=== PATIENT | female | born 1945 | race Caucasian/White ===

== ENCOUNTER 2020-05-09 15:34 | Emergency (ER) | payer MEDICARE, BC, SELFPAY ==
[2020-05-09 15:41] VITALS: BP 133/92; PULSE 118; RESP 16; TEMP 36.7; O2SAT 100
--- NOTE | 2020-05-09 15:47 | PC.NURSE ---
Called to give report. Was told by Elly that Tracie will have to call me back. She is on the COVID side.
[2020-05-09 15:55] LABS: Basophils Percent Auto 0.3 % (0.2-1.2); Eosinophils Absolute Auto 0.1 K/mm3 (0-0.3); Eosinophils Percent Auto 1.5 % (0-4.4); Hematocrit 42.4 % (37.0-47.0); Hemoglobin 14.9 g/dL (12.0-15.0); Immature Granulocyte Absolute 0.01 K/mm3 (0.00-0.031); Immature Granulocyte Percent A 0.2 % (0-0.5); Lymphocytes Absolute Auto 1.38 K/mm3 (0.9-3.2); Lymphocytes Percent Auto 20.9 % (18.3-44.2); Mean Corpuscular HGB Conc 35.1 g/dl (32-36); Mean Platelet Volume 10.3 fl (7.4-10.4); Monocytes Absolute Auto 0.4 K/mm3 (0.1-0.6); Monocytes Percent Auto 6.4 % (2.6-8.5); Neutrophils Absolute Auto 4.7 K/mm3 (1.3-6.7); Neutrophils Percent Auto 70.7 % (45.5-73.1); Platelet Count Result 296 k/mm3 (150-375); Red Blood Count 4.51 M/mm3 (4.2-5.4); Red Cell Distribution Width 11.6 % (11.5-14.5); White Blood Count 6.6 K/mm3 (4.5-10.0)
[2020-05-09 16:06] LABS: Ethanol < 10 mg/dL (<10)
[2020-05-09 16:07] LABS: Alanine Aminotransferase 11 U/L (4-35); Albumin Level 4.6 g/dL (3.5-5.1); Alkaline Phosphatase 75 U/L (38-126); Anion Gap 12 mmol/L (8-16); Aspartate Amino Transferase 26 U/L (14-36); Bilirubin,Total 0.5 mg/dL (0.2-1.3); Blood Urea Nitrogen 8 mg/dL (7-17); Calcium 10.1 mg/dL (8.4-10.2); Carbon Dioxide 27 mmol/L (22-30); Chloride 96 mmol/L (98-107); Estimated CRCL calculation 37 ml/min; Estimated Glomerular Filt Rate 55; Glucose 116 mg/dL (65-105); Potassium 4.2 mmol/L (3.4-5.0); Sodium 135 mmol/L (137-145)
[2020-05-09 16:27] LABS: Add Urine Microscopic? YES; Appearance Urine Clear (Clear); Bacteria Urine Trace /hpf; Bilirubin Urine Negative (Negative); Blood Urine Negative (Negative); Color Urine Yellow (Yellow); Glucose Urine UA Negative (Negative); Hyaline Casts Urine 20-29 /lpf; Ketones Urine Negative (Negative); Leukocyte Esterase Ur Trace LEU/UL (Negative); Mucus Urine Rare /lpf; Nitrate Urine Negative (Negative); Protein Urine 1+ mg/dL (Negative); RBC Urine 0-2 /hpf (0-2); Specific Grav Ur 1.011 (1.001-1.035); Squamous Epithelial Cell Urine Rare /hpf (Few); Urobilinogen Urine Negative mg/dL (<2.0)
--- NOTE | 2020-05-09 16:37 | PC.NURSE ---
Pt arrived to ED with sister. Pt states that she has not been wanting to eat anything and all she does is watch TV. 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 Pt states she does not take any medication because they dont work .Pt states she had her first episode when she was 5. Pt has been hospitalized in past for depression ( 2000, 2018,2019). Pt states that she does not have a good support system. Pt states her son passed in 2018. Pt states she is not [place]. Pt states that she would go into her garage and turn her car on. by carbon monoxide. Pt is cooperative and answers questions appropriately. Pt taken to safe room and has sitter at bedside.
[2020-05-09 16:44] LABS: Amphetamine Screen Urine Negative (Negative); Barbiturate Screen Urine Negative (Negative); Benzodiazepines Screen Urine Negative (Negative); Cannabinoid Screen Urine Negative (Negative); Cocaine Screen Urine Negative (Negative); Methadone Screen Urine Negative (Negative); Opiate Screen Urine Negative (Negative); Phencyclidine Screen Urine Negative (Negative)
--- NOTE | 2020-05-09 17:11 | PC.NURSE ---
Report taken from JOHANNA Vazquez. Pt moved to room 2. Pt remains on 1:1 observation. Sister at bedside.
--- NOTE | 2020-05-09 17:40 | PC.NURSE ---
Juany from Crisis called.
--- NOTE | 2020-05-09 17:43 | ED.PSYCH ---
HPI - Psych General Chief Complaint: Psychiatric Symptoms <Clement Ramon MD - Last Filed: 05/10/20 00:21> Stated Complaint: anxiety <Clement Ramon MD - Last Filed: 05/10/20 00:21> Time Seen by Provider: 05/09/20 16:19 <Clement Ramon MD - Last Filed: 05/10/20 00:21> History of Present Illness HPI Narrative: Patient is a 74-year-old female who presents ER with suicidal ideation and depression. Patient has had depression for several years since her son . She quit taking her medication in September 2019. Her depression became worse in the last month after her sister moved from being 20 miles away to 50 miles away and she no longer sees her once a week. She has a plan to end her own life by starting her car in her close garage and suffocating herself on carbon monoxide. She has not tried to take her own life previously but has been hospitalized for her depression in the last year. <Clement Ramon MD - Last Filed: 05/10/20 00:21> Related Data Home Medications: Home Medications Medication Instructions Recorded Confirmed buspirone 15 mg tablet 15 mg PO BID 06/11/19 02/29/20 donepezil 10 mg tablet 10 mg PO ONCE 06/11/19 02/29/20 methylphenidate HCl 54 mg 54 mg PO QAM 06/11/19 02/29/20 tablet,extended release 24 hr olanzapine 20 mg tablet 20 mg PO DAILY 06/11/19 02/29/20 vortioxetine 20 mg tablet 20 mg PO DAILY 06/11/19 02/29/20 <Clement Ramon MD - Last Filed: 05/10/20 00:21> Allergies/Adverse Reactions: Allergies Allergy/AdvReac Type Severity Reaction Status Date / Time ciprofloxacin Allergy Unknown Nausea Verified 02/29/20 14:37 doxycycline Allergy Unknown Nausea Verified 02/29/20 14:37 lamotrigine Allergy Unknown Unknown Verified 02/29/20 14:37 lithium Allergy Unknown Unknown Verified 02/29/20 14:37 Sulfa (Sulfonamide Allergy Unknown Nausea Verified 02/29/20 14:37 Antibiotics) <Clement Ramon MD - Last Filed: 05/10/20 00:21> Review of Systems Review of Systems: All systems reviewed & are unremarkable except as noted in HPI and below <Clement Ramon MD - Last Filed: 05/10/20 00:21> Constitutional: Constitutional: Denies chills, Denies fever(s) and Denies weakness <Clement Ramon MD - Last Filed: 05/10/20 00:21> ENT: Denies nasal congestion and Denies sore throat <Clement Ramon MD - Last Filed: 05/10/20 00:21> Cardiovascular: Cardiovascular: Denies chest pain, Denies rapid heart rate and Denies radiating jaw, neck or arm pain <Clement Ramon MD - Last Filed: 05/10/20 00:21> Respiratory: Respiratory: Denies cough and Denies dyspnea <Clement Ramon MD - Last Filed: 05/10/20 00:21> Psychiatric: Psychiatric: Denies anxiety, Reports depression, Denies homicidal ideation and Reports suicidal ideation <Clement Raomn MD - Last Filed: 05/10/20 00:21> [facility] Past Medical History Medical History: Medical History (Updated 05/10/20 @ 00:21 by Clement Ramon MD) Actinic keratosis Chronic kidney disease, stage 3 (moderate) Hypothyroidism, unspecified Iron deficiency anemia, unspecified Major depressive disorder, recurrent, unspecified Mixed hyperlipidemia <Clement Ramon MD - Last Filed: 05/10/20 00:21> Surgical History Surgical History: Surgical History (Updated 05/09/20 @ 20:54 by Clement Ramon MD) No pertinent past surgical history <Clement Ramon MD - Last Filed: 05/10/20 00:21> Family History Family History: Family History Grandparent Diabetes mellitus Father Family history of elevated blood lipids Family history of cardiovascular disease Family history of coronary artery disease Family history of renal cell carcinoma Sibling Family history of lung cancer <Clement Ramon MD - Last Filed: 05/10/20 00:21> Social History Social History: Social History (Reviewed 02/29/20 @ 14:38 by Shanon Macias,
--- NOTE | 2020-05-09 17:52 | PC.NURSE ---
Dinner tray ordered for pt.
--- NOTE | 2020-05-09 18:30 | PC.NURSE ---
Dinner tray ordered for pt. Pt resting on stretcher with family at bedside. Pt on 1:1 observation.
--- NOTE | 2020-05-09 20:55 | PC.NURSE ---
gateway conversing with ptAvelino
[2020-05-09 21:01] VITALS: BP 122/74; PULSE 76; RESP 18; O2SAT 98
--- NOTE | 2020-05-10 01:12 | PC.NURSE ---
Addendum entered by Nisa Weaver 05/10/20 01:13: ETA 45 minutes, not 20 minutes. Original Note: called [facility] to request transport. ETA 20 minutes
[2020-05-10 01:21] VITALS: BP 128/74; PULSE 73; RESP 18; O2SAT 98
== END 2020-05-10 02:05 ==
PROVIDERS: General Practice; Emergency Provider Emergency Medicine; PCP Family Medicine
DX: F32.9 Major depressive disorder, single episode, unspecified (principal); R45.851 Suicidal ideations; N18.30 Chronic kidney disease, stage 3 unspecified; L57.0 Actinic keratosis; E03.9 Hypothyroidism, unspecified; D50.9 Iron deficiency anemia, unspecified; E78.2 Mixed hyperlipidemia; Z79.899 Other long term (current) drug therapy
CPT/HCPCS: 36415; 80053; 80307; 81001; 84443; 85025; 87077; 87086; 87088; 87186; 87426; 99285

== ENCOUNTER 2020-08-14 16:16 | Inpatient (IN) | payer MEDICARE, BC, SELFPAY ==
[2020-08-14] VITALS (31 sets, daily range): BP systolic 103–135; BP diastolic 46–66; PULSE 79–109; RESP 16–20; TEMP 35.7–36.8; O2SAT 93–100; BMI 25.7
--- NOTE | ~2020-08-14 | CT_ITS ---
EXAMINATION: CT pelvis wo con DATE: 08/14/2020 17:37 INDICATION: Pelvic fracture. Fall. TECHNIQUE: Computed tomography (CT) of the pelvis was performed without intravenous contrast. Automat ed exposure control and iterative reconstruction technique were employed. The dose-length product was 268.30 mGy-cm. COMPARISON: Pelvis radiograph 08/14/2020 FINDINGS: Bone alignment is normal. There is severe lumbar spondylosis. There is an insufficiency fra cture of left sacral ala. There are fractures of left superior and inferior pubic rami and left clifford ymphyseal pubis. There is moderate osteoarthritis of the hips. IMPRESSION: 1. Insufficiency fractures of left sacral ala, left superior and inferior pubic rami, and left parasy mphyseal pubis. Reviewed, dictated and finalized at location A. SURY SPECIALIST IMPRESSION: 1. Insufficiency fractures of left sacral ala, left superior and inferior pubic rami, and left parasymphyseal pubis.
--- NOTE | ~2020-08-14 | XR_ITS ---
XR chest 1V DATE: 08/14/2020 17:10 INDICATION: Fall. Left pelvic fracture TECHNIQUE: AP chest COMPARISON: 06/26/2019 PA and lateral chest FINDINGS: Calcified left breast implant. Surgical clips, left axillary area, consistent with axillary node dissection. Surgical clips, right upper quadrant, consistent with cholecystectomy. No pulmonary infiltrate or consolidation, pleural effusion or pulmonary vascular congestion or pneumo thorax. Heart size appears within normal range. No hilar or mediastinal enlargement is evident. IMPRESSION: No active cardiopulmonary disease Reviewed, dictated and finalized at location A. GN/ANIMATION INSTRUCTOR
--- NOTE | ~2020-08-14 | CT_ITS ---
EXAMINATION: CT brain wo con DATE: 08/14/2020 16:57 INDICATION: Head injury TECHNIQUE: Computed tomography (CT) of the head was performed without intravenous contrast. The mA wa s adjusted according to patient size. Iterative reconstruction technique was employed. Exam dose: 60 5.33 mGy-cm total exam DLP. COMPARISON: 12/24/2017 CT brain FINDINGS: No intracranial mass lesion or hemorrhage or cerebrovascular accident. No midline shift or mass effect effect. There is moderate cerebral and cerebellar volume loss consistent with age. Bilateral carotid siphon internal carotid artery calcifications. Nonspecific diminished attenuation o f the cerebral white matter is likely due to chronic small vessel ischemic changes. No subdural or epidural hematoma. No fracture or bone destruction of the cranial vault. The mastoid air cells are normally developed and aerated. Included paranasal sinuses are normally dev eloped and aerated. IMPRESSION: Cerebral atherosclerosis and chronic small vessel ischemic changes of cerebral white mat ter No acute intracranial finding or skull fracture Reviewed, dictated and finalized at Location A. Reviewed, dictated and finalized at location A. OR ELECTRICAL PROJECT MANAGER IMPRESSION: Cerebral atherosclerosis and chronic small vessel ischemic changes of cerebral white matter No acute intracranial finding or skull fracture
--- NOTE | ~2020-08-14 | CT_ITS ---
EXAMINATION: CT cervical spine wo con DATE: 08/14/2020 16:57 INDICATION: Fall. Posterior head injury TECHNIQUE: Computed tomography (CT) of the cervical spine was performed without intravenous contrast. Automated exposure control and iterative reconstruction technique were employed. Exam dose: 200.74 mGy-cm total exam DLP. COMPARISON: None FINDINGS: There is reversal of cervical curvature which may be due to positioning and/or muscle spasm . C1 and C2 are normally aligned and the odontoid process is intact. No fracture or dislocation or lock ed facet or prevertebral soft tissue swelling is detected. There is moderate loss of disc space height at C5-6 and moderately severe degenerative disc disease a t C6-7. There is degenerative change at the apophyseal joints throughout the cervical spine. There is uncover tebral joint spurring particularly at C4-5, C5-C6, C6-7.. IMPRESSION: Reversal cervical curvature which may be due to muscle spasm No fracture or dislocation or locked facet Degenerative changes Reviewed, dictated and finalized at Location A. Reviewed, dictated and finalized at location A. NOMICS CONSULTANT
--- NOTE | ~2020-08-14 | US_ITS ---
EXAMINATION: US abdomen limited EXAM DATE: 08/15/2020 09:13 INDICATION: Transaminitis. Elevated liver function tests. TECHNIQUE: Multiple grayscale and Doppler images of the abdomen right upper quadrant were obtained (b y a technologist who performed the scan) and subsequently reviewed. Comparison is made to prior exami nation from 11/24/2016. FINDINGS: The pancreatic head and body are normal in appearance. The pancreatic tail is not visualized. The l iver has normal echogenicity and contour. There are no focal liver lesions identified. There is no evidence of intrahepatic biliary duct dilation. Portal venous flow was seen in the hepatopedal, nor mal direction and has normal Doppler waveform. No right-sided hydronephrosis. Common bile duct measures 5 mm, which is normal. The gallbladder fossa is unremarkable. Splenic gr anulomata. Spleen measures 11.6 cm in size, normal. IMPRESSION: 1. Unremarkable abdominal ultrasound exam. Reviewed, dictated and finalized at location B. TRICAL AND INSTRUMENTATION MECHANIC
--- NOTE | ~2020-08-14 | XR_ITS ---
XR hip LT 2V w AP pelvis DATE: 08/14/2020 17:09 INDICATION: Fall. Left hip pain. TECHNIQUE: AP pelvis. Left hip AP, crosstable lateral views COMPARISON: None FINDINGS: There is fracture of the left superior pubic ramus. The pubic symphysis and sacroiliac joints are intact. Hip joint spaces are symmetric and relatively w ell preserved. No fracture or dislocation, avascular necrosis or bone destruction of the left hip. IMPRESSION: Left superior pubic ramus fracture CT pelvis examination may be helpful for detection of additional pelvic ring fractures Reviewed, dictated and finalized at location A. NOSTIC SALES SPECIALIST IMPRESSION: Left superior pubic ramus fracture CT pelvis examination may be helpful for detection of additional pelvic ring fr actures
--- NOTE | 2020-08-14 16:22 | ECG_ITS ---
Measurements Intervals [place] Rate: 69 P: 68 FL: 158 QRS: 56 QRSD: 98 T: 62 QT: 391 QTc: 420 Interpretive Statements SINUS RHYTHM NORMAL ECG Electronically Signed On 08-14-2020 16:30:44 HEAD RIGGER by Sukumar Lewis D.O.
--- NOTE | 2020-08-14 16:37 | ED.FALL ---
HPI - Fall General Chief Complaint: Fall Stated Complaint: fall - groin/pelvic pain Time Seen by Provider: 08/14/20 16:29 Source: patient Mode of arrival: EMS Limitations: no limitations History of Present Illness HPI Narrative: This is a 75 year old female with history of hypothyroid, hyperlipidemia who presents from home for evaluation of left hip pain s/p fall. She states she lost her balance trying to step over a step in her garage, and she fell backwards onto her left hip. She does reports hitting her head but she denies LOC. She denies neck pain, rib pain, arm pain. she has left hip pain but she denies numbness , tingling or weakness. She is also complaining of epigastric pain that she describes as burning that radiates into her chest. She reports she frequently has this issue and it feels like indigestion. She denies nausea, vomiting, cough, or dizziness. Related Data Home Medications Medication Instructions Recorded Confirmed levothyroxine 50 mcg tablet 50 mcg PO DAILY 08/07/20 08/14/20 lamotrigine 50 mg PO HS 08/14/20 08/14/20 nortriptyline 50 mg PO HS 08/14/20 08/14/20 valbenazine 40 mg PO DAILY 08/14/20 08/14/20 Allergies Allergy/AdvReac Type Severity Reaction Status Date / Time ciprofloxacin Allergy Unknown Nausea Verified 08/14/20 16:28 doxycycline Allergy Unknown Nausea Verified 08/14/20 16:28 lamotrigine Allergy Unknown Unknown Verified 08/14/20 16:28 lithium Allergy Unknown Unknown Verified 08/14/20 16:28 Sulfa (Sulfonamide Allergy Unknown Nausea Verified 08/14/20 16:28 Antibiotics) Review of Systems Review of Systems: All systems reviewed & are unremarkable except as noted in HPI and below Constitutional: Constitutional: Denies chills and Denies fever(s) Cardiovascular: Cardiovascular: Reports chest pain, Denies rapid heart rate and Denies radiating jaw, neck or arm pain Respiratory: Respiratory: Denies cough and Denies dyspnea Gastrointestinal: Gastrointestinal: Reports abdominal pain, Denies diarrhea, Denies nausea and Denies vomiting PMFSH Past Medical History Medical History Actinic keratosis Chronic kidney disease, stage 3 (moderate) Hypothyroidism, unspecified Iron deficiency anemia, unspecified Major depressive disorder, recurrent, unspecified Mixed hyperlipidemia Surgical History Surgical History No pertinent past surgical history Family History Family History Grandparent Diabetes mellitus Father Family history of elevated blood lipids Family history of cardiovascular disease Family history of coronary artery disease Family history of renal cell carcinoma Sibling Family history of lung cancer Social History Social History Smoking status: Never smoker Alcohol intake: never Substance use: never Gender identity (if verbalized by the patient): Female Spiritual care concerns: No Exam Const: General: alert Orientation/consciousness: patient oriented x3 HENMT: Head: normocephalic and atraumatic Face and sinus: face symmetric Mouth: Yes Normal oral and palatal mucosa present, Yes lip normal, Yes oropharynx normal and Yes moist mucous membranes Throat: posterior oropharynx normal Eyes: Pupils: Equal, round and reactive pupils present EOM: EOMs intact bilaterally Chest: Chest palpation & inspection: normal inspection of the chest and no tenderness Resp: Effort & Inspection: normal respiratory effort and no retractions Auscultation: clear to auscultation bilaterally Cardio: Rate: regular rate Rhythm: regular rhythm Heart sounds: no murmurs GI: GI Palp: Yes Soft to palpation, Yes Tenderness to palpation present (GI) (epigastric) and No Guarding due to palpation present (GI) Auscultation: normal bowel sounds
--- NOTE | 2020-08-14 16:52 | PC.NURSE ---
Pt in CT/xray.
--- NOTE | 2020-08-14 17:04 | PC.NURSE ---
Pt in radiology at this time, will medicate per provider order upon return.
[2020-08-14] MEDS: SODIUM CHLORIDE 0.9% IV 1,000 ML 999 ML IV CONT (17:09)
[2020-08-14] MEDS: BELLADONNA ALK/PHENOB ELIX 10 ML, MAG HYDROX/ALUMINUM HYD/SIMETH 30 ML, LIDOCAINE HCL 2... PO (17:09)
[2020-08-14 18:52] LABS: Basophils Percent Auto 0.2 % (0.2-1.2); Eosinophils Percent Auto 0.2 % (0-4.4); Hematocrit 34.6 % (37.0-47.0); Immature Granulocyte Absolute 0.11 K/mm3 (0.00-0.031); Immature Granulocyte Percent A 0.6 % (0-0.5); Lymphocytes Absolute Auto 0.71 K/mm3 (0.9-3.2); Lymphocytes Percent Auto 4.1 % (18.3-44.2); Mean Corpuscular HGB Conc 34.7 g/dl (32-36); Mean Corpuscular Hemoglobin 33.8 pg (26-34); Mean Corpuscular Volume 97.5 fl (80-100); Mean Platelet Volume 9.7 fl (7.4-10.4); Monocytes Absolute Auto 0.7 K/mm3 (0.1-0.6); Monocytes Percent Auto 3.9 % (2.6-8.5); Neutrophils Absolute Auto 15.7 K/mm3 (1.3-6.7); Platelet Count Result 219 k/mm3 (150-375); Red Blood Count 3.55 M/mm3 (4.2-5.4); Red Cell Distribution Width 11.7 % (11.5-14.5); White Blood Count 17.3 K/mm3 (4.5-10.0)
[2020-08-14 19:21] LABS: Lipase 42 U/L (23-300)
[2020-08-14 19:23] LABS: Alanine Aminotransferase 64 U/L (4-35); Albumin Level 3.7 g/dL (3.5-5.1); Alkaline Phosphatase 96 U/L (38-126); Anion Gap 5 mmol/L (8-16); Aspartate Amino Transferase 158 U/L (14-36); Bilirubin,Total 0.5 mg/dL (0.2-1.3); Blood Urea Nitrogen 14 mg/dL (7-17); Calcium 8.7 mg/dL (8.4-10.2); Carbon Dioxide 26 mmol/L (22-30); Chloride 103 mmol/L (98-107); Estimated CRCL calculation 37 ml/min; Estimated Glomerular Filt Rate 54; Glucose 114 mg/dL (65-105); Potassium 4.2 mmol/L (3.4-5.0); Sodium 134 mmol/L (137-145)
[2020-08-14 19:34] LABS: Troponin I < 0.012 ng/mL (0.000-0.034)
--- NOTE | 2020-08-14 20:11 | PM.IMHP ---
H&P: HPI History of Present Illness Date/Time: 08/14/20 20:11 Chief Complaint: Acute fall in garage today. Narrative: This is a 75 year old female with known previous left sided breast cancer, CKD stage III, hypothyroidism, and depression who presented to the hospital today after suffering a fall in her garage. Apparently she missed a step and fell backwards onto her left hip. She denies any loss of consciousness but does believe she might have hit her head. She could not ambulate afterwards. Currently her only complaint is left sided pelvic pain. She denies any recent fevers, chills, cough, shortness of breath, chest pain, headache, nausea, vomiting, abdominal pain. diarrhea, rectal bleeding, LE swelling, or focal neurological symptoms. She does complain of foul smelling urine over the past few days but denies any overt dysuria. No other complaints. Review of Systems Review of Systems: All systems reviewed & are unremarkable except as noted in HPI and below PMFSH Past Medical History Medical History Actinic keratosis Chronic kidney disease, stage 3 (moderate) Hypothyroidism, unspecified Iron deficiency anemia, unspecified Major depressive disorder, recurrent, unspecified Mixed hyperlipidemia Sacral fracture Surgical History Surgical History No pertinent past surgical history Family History Family History Grandparent Diabetes mellitus Father Family history of elevated blood lipids Family history of cardiovascular disease Family history of coronary artery disease Family history of renal cell carcinoma Sibling Family history of lung cancer Social History Social History Smoking status: Never smoker Alcohol intake: never Substance use: never Gender identity (if verbalized by the patient): Female Spiritual care concerns: No Meds Home Medications and Allergies Home Medications Medication Instructions Recorded Confirmed Type simvastatin 20 mg tablet 20 mg PO DAILY #90 tablet 05/29/20 08/14/20 Rx levothyroxine 50 mcg tablet 50 mcg PO DAILY 08/07/20 08/14/20 History lamotrigine 50 mg PO BID 08/14/20 08/15/20 History nortriptyline 50 mg PO HS 08/14/20 08/14/20 History valbenazine 40 mg PO DAILY 08/14/20 08/14/20 History Allergies Allergy/AdvReac Type Severity Reaction Status Date / Time ciprofloxacin Allergy Unknown Nausea Verified 08/14/20 16:28 doxycycline Allergy Unknown Nausea Verified 08/14/20 16:28 lamotrigine Allergy Unknown Unknown Verified 08/14/20 16:28 lithium Allergy Unknown Unknown Verified 08/14/20 16:28 Sulfa (Sulfonamide Allergy Unknown Nausea Verified 08/14/20 16:28 Antibiotics) Vital Signs Vital Signs - 24 hr 08/14/20 16:23 08/14/20 16:28 08/14/20 16:30 Temperature 35.7 C L Pulse Rate 79 82 93 Respiratory Rate 18 Blood Pressure 103/53 L Pulse Oximetry 96 96 93 08/14/20 16:31 08/14/20 16:32 08/14/20 17:09 Temperature Pulse Rate 96 80 86 Respiratory Rate Blood Pressure Pulse Oximetry 96 98 98 08/14/20 17:10 08/14/20 17:15 08/14/20 17:38 Temperature Pulse Rate 86 88 95 Respiratory Rate 16 Blood Pressure 115/63 Pulse Oximetry 95 100 98 08/14/20 17:39 08/14/20 17:45 08/14/20 18:00 Temperature Pulse Rate 91 98 91 Respiratory Rate Blood Pressure 130/66 135/64 Pulse Oximetry 100 98 98 08/14/20 18:01 08/14/20 18:15 08/14/20 18:30 Temperature Pulse Rate 96 91 95 Respiratory Rate Blood Pressure 133/60 Pulse Oximetry 98 96 97 08/14/20 18:31 08/14/20 18:45 08/14/20 19:00 Temperature Pulse Rate 90 99 100 Respiratory Rate Blood Pressure Pulse Oximetry 96 100 99 08/14/20 19:15 08/14/20 19:30 08/14/20 19:45 Temperature Pulse Rate 99 100 100 Respiratory Rate Bl
[2020-08-14 20:33] LABS: Add Urine Microscopic? YES; Appearance Urine Cloudy (Clear); Bacteria Urine Trace /hpf; Bilirubin Urine Negative (Negative); Blood Urine Negative (Negative); Color Urine Yellow (Yellow); Glucose Urine UA Negative (Negative); Ketones Urine Negative (Negative); Leukocyte Esterase Ur 3+ LEU/UL (Negative); Nitrate Urine Positive (Negative); Protein Urine Negative (Negative); Squamous Epithelial Cell Urine Occasional /hpf (Few); Urobilinogen Urine Negative mg/dL (<2.0); WBC Urine >75 /hpf
[2020-08-14] MEDS: MORPHINE SULFATE (*CRX) 4 MG/ML INJ IV PUSH (21:42)
--- NOTE | 2020-08-14 22:18 | PC.NURSE ---
This patient, Laya Castillo, was admitted to 2 Medical Room 251-01. Patient/family oriented to hospital policies and general routines including ID bracelet, bed and alarms, visiting hours, pain management, procedures, bathroom and other care routines, personal items, smoking policy, room service/diet, and visiting hours. Information on how to activate the Rapid Response Team has been discussed. Patient/Family are encouraged to report perceived risks to care and to ask questions if they do not understand what they are told or what they should do.
[2020-08-15 05:24] LABS: Basophils Percent Auto 0.4 % (0.2-1.2); Eosinophils Absolute Auto 0.1 K/mm3 (0-0.3); Eosinophils Percent Auto 1.5 % (0-4.4); Hematocrit 31.5 % (37.0-47.0); Hemoglobin 10.7 g/dL (12.0-15.0); Immature Granulocyte Absolute 0.01 K/mm3 (0.00-0.031); Immature Granulocyte Percent A 0.2 % (0-0.5); Lymphocytes Absolute Auto 0.92 K/mm3 (0.9-3.2); Mean Corpuscular Hemoglobin 33.1 pg (26-34); Mean Corpuscular Volume 97.5 fl (80-100); Mean Platelet Volume 9.9 fl (7.4-10.4); Monocytes Absolute Auto 0.5 K/mm3 (0.1-0.6); Monocytes Percent Auto 9.6 % (2.6-8.5); Neutrophils Absolute Auto 3.9 K/mm3 (1.3-6.7); Neutrophils Percent Auto 71.3 % (45.5-73.1); Platelet Count Result 199 k/mm3 (150-375); Red Blood Count 3.23 M/mm3 (4.2-5.4); Red Cell Distribution Width 11.7 % (11.5-14.5); White Blood Count 5.4 K/mm3 (4.5-10.0)
[2020-08-15 05:46] LABS: Alanine Aminotransferase 627 U/L (4-35); Albumin Level 3.5 g/dL (3.5-5.1); Alkaline Phosphatase 127 U/L (38-126); Anion Gap 2 mmol/L (8-16); Bilirubin,Total 0.5 mg/dL (0.2-1.3); Blood Urea Nitrogen 14 mg/dL (7-17); Carbon Dioxide 30 mmol/L (22-30); Chloride 101 mmol/L (98-107); Estimated CRCL calculation 37 ml/min; Estimated Glomerular Filt Rate 54; Glucose 103 mg/dL (65-105); Potassium 4.4 mmol/L (3.4-5.0); Sodium 133 mmol/L (137-145)
[2020-08-15 05:53] VITALS: BP 110/67; PULSE 111; RESP 18; TEMP 37.4; O2SAT 100
[2020-08-15 06:58] LABS: Aspartate Amino Transferase 1095 U/L (14-36)
[2020-08-15] MEDS: MORPHINE SULFATE (*CRX) 4 MG/ML INJ IV PUSH (07:27)
[2020-08-15] MEDS: LEVOTHYROXINE SODIUM 50 MCG TABLET PO (08:02)
[2020-08-15 08:10] VITALS: RESP 18; O2SAT 98
[2020-08-15 09:05] LABS: Hepatitis B Surface Antigen Negative (Negative)
[2020-08-15 09:12] LABS: HAV RESULT Negative (Negative); Hepatitis B Core IgM Result Negative (Negative)
[2020-08-15 09:23] LABS: Hepatitis C Virus Antibody Negative (Negative)
--- NOTE | 2020-08-15 11:28 | PM.IMPN ---
Progress Note: A&P Assessment and Plan (1) Fracture of left pelvis: Code(s): S32.9XXA - Fracture of unspecified parts of lumbosacral spine and pelvis, initial encounter for closed fracture Status: Acute Assessment and Plan: S/p mechanical fall at home off one step. No associated symptoms surrounding fall. CT pelvis showed insufficiency fractures of left sacral ala, left superior and inferior pubic rami, and left parasymphyseal pubis. Orthopedic Surgery consulted and appreciate recommendations Continue conservative treatment with pain control and PT/OT with toe touch weight bearing status on left LE per Ortho rec Continue PT/OT CC working on placement Will do Lovenox for DVT ppx, likely through SNF She will need f/u with Ortho as outpatient Once patient ambulating more, will remove Garces Monitor for now (2) Abnormal urinalysis: Code(s): R82.90 - Unspecified abnormal findings in urine Status: Acute Assessment and Plan: UA suggestive of UTI with 3+ leuk est, trace bacteria, RBCs, with occasional squam epith cells. UCx pending. Patient placed on empiric Rocephin pending cultures. She has frequent UTIs. No urinary symptoms lately Continue Rocephin pending UCx; tailor antibiotics to culture Monitor (3) Leukocytosis: Code(s): D72.829 - Elevated white blood cell count, unspecified Status: Acute Assessment and Plan: 2/2 possible UTI vs recent trauma from fall Continue treatment for possible UTI as noted above Trend WBC (4) Transaminitis: Code(s): R74.01 - Elevation of levels of liver transaminase levels Status: Acute Assessment and Plan: Now marked increase in LFTs. RUQ US unremarkable and hepatitis panel negative. Bili normal. Possibly due to medications vs more likely trauma. Patient asymptomatic. Abd exam unremarakble Trend for now Consider further work up if persistently elevated or if patient develops symptoms (5) Mixed hyperlipidemia: Code(s): E78.2 - Mixed hyperlipidemia Status: Chronic Assessment and Plan: Statin held for now (6) Major depressive disorder, recurrent, unspecified: Code(s): F33.9 - Major depressive disorder, recurrent, unspecified Status: Chronic Assessment and Plan: Continue home medications for now (7) Hypothyroidism, unspecified: Code(s): E03.9 - Hypothyroidism, unspecified Status: Chronic Assessment and Plan: TSH with reflex tomorrow Continue home levothyroxine (8) Chronic kidney disease, stage 3 (moderate): Code(s): N18.3 - Chronic kidney disease, stage 3 (moderate) Status: Chronic Assessment and Plan: Cr 1.00 today; appears to be at baseline Trend Subjective Date/time seen: 08/15/20 11:28 Interval history: Patient is a 75 year old female with known previous left sided breast cancer, CKD stage III, hypothyroidism, and depression who is seen in follow up for evaluation for insufficiency fractures of left sacral ala, left superior and inferior pubic rami, and left parasymphyseal pubis s/p mechanical at fall at home. Patient states she feels okay. Pain is reasonably controlled with PO pain medications. Left pelvic/hip pain made worse with movement. She has no other complaints. She tells me she simply lost her footing/balance when climbing up her stairs at home; no associated dizziness/lightheadedness/LOC, sweats, cp/palpitations. Currently denies f/c/s, headaches, changes in v/h, cp/palpitations, sob/cough, n/v/d/c, abd pain, changes in BMs, issues with Garces, calf pain/swelling. Review of Systems Review of Systems: All systems reviewed &
--- NOTE | 2020-08-15 13:38 | PM.CNOR ---
Assessment and Plan Assessment and plan (1) Sacral fracture: Qualifiers: Encounter type: initial encounter Zone of sacrum fracture: unspecified portion of sacrum Fracture type: closed Qualified Code(s): S32.10XA - Unspecified fracture of sacrum, initial encounter for closed fracture Code(s): S32.10XA - Unspecified fracture of sacrum, initial encounter for closed fracture Status: Acute Assessment and Plan: History, exam and radiographs reviewed with the patient. Radiographs and CT reviewed. CT of the pelvis reveals insufficiency fractures of left sacral ala, left superior and inferior pubic rami, and left parasymphyseal pubis. The fracture types and injury as well as radiographs discussed with the patient and family. Operative and nonoperative treatment options reviewed. The patient elects for non operative treatment. Risk of nonunion, malunion or late displacement discussed. Stiffness, pain and possible dysfunction of the joint discussed. Fracture precautions and activity restrictions reviewed. The patient verbalizes understanding. Recommended early mobilization with toe-touch weight-bearing to the left lower extremity. Pain control. Agree with DVT prophylaxis. PT/OT for mobilization. Recommended TRC consult for potential placement as patient lives at home independently. Walker. Fall Risk. Incentive spirometry. Ice. Dispo: [facility] vs. Acute Rehab Follow up in the outpatient ortho clinic in 6 weeks. (2) Pelvic fracture: Qualifiers: Encounter type: initial encounter Pelvic bone location: multiple parts Fracture alignment: without disruption of pelvic ring Fracture type: closed Qualified Code(s): S32.82XA - Multiple fractures of pelvis without disruption of pelvic ring, initial encounter for closed fracture Code(s): S32.9XXA - Fracture of unspecified parts of lumbosacral spine and pelvis, initial encounter for closed fracture Status: Acute History of Present Illness HPI Consult date: 08/15/20 Requesting physician: Melinda Silvestre MD Consult reason: fracture (Pelvic Fracture ) Chief complaint: pelvic fracture Narrative: 75-year-old female admitted status post fall while at home in her garage. Per the patient she fell backwards after stepping up onto a step to high. She was at home with her sister. She does currently live alone by her sister lives near. She presented [facility] for evaluation. Radiographs of the left hip reveal a left superior pubic ramus fracture. CT scan of the pelvis reveals insufficiency fractures of left sacral ala, left superior and inferior pubic rami, and left parasymphyseal pubis. Patient was admitted for pain control. Orthopedic consult requested by the hospitalist service. Review of Systems Constitutional: Constitutional: Reports no additional constitutional complaints, Denies chills, Denies fatigue, Denies fever(s), Denies frequent falls, Denies headache(s) and Denies weakness Eyes: Eyes: Denies change in vision ENT: Reports Normal hearing present and Denies headache(s) Cardiovascular: Cardiovascular: Denies chest pain and Denies dyspnea Respiratory: Respiratory: Denies cough, Denies dyspnea and Denies wheezing Gastrointestinal: Gastrointestinal: Denies constipation, Denies diarrhea, Denies nausea and Denies vomiting Genitourinary: Genitourinary: Denies hematuria, Denies dysuria and Denies urinary urgency Musculoskeletal: Musculoskeletal: Reports as per HPI, Reports arthralgias, Reports limited range of motion, Denies numbness and Denies tingling Integumentary/Breasts: Skin/Breast: Reports as per HPI Neurologic: Reports as per HPI, Reports Normal hearing present, Denies headache(s), Denies numbness, Denies tingling and Denies weakness Psychiatric: Psychiatric: Reports no additional psychiatric complaints Endocrine: Endocrine: Reports no additional endocrine complaints and Denies fatigue Hematologic/Lymphatic: Hematologic/Lymphati
[2020-08-15 14:00] VITALS: BP 101/67; PULSE 106; RESP 12; TEMP 36.6; O2SAT 94
[2020-08-15] MEDS: HYDROcodone/acetaminophen (*CRX) 5-325 MG TABLET 1 TAB PO ×2 (14:19→21:12)
[2020-08-15] MEDS: lamoTRIgine 25 MG TABLET 50 MG PO (21:09)
[2020-08-15] MEDS: NORTRIPTYLINE HCL 25 MG CAPSULE 50 MG PO (21:10)
[2020-08-15 21:53] VITALS: BP 112/50; PULSE 94; RESP 18; TEMP 36.7; O2SAT 96
[2020-08-16 05:28] LABS: Hematocrit 28.7 % (37.0-47.0); Hemoglobin 9.8 g/dL (12.0-15.0); Mean Corpuscular HGB Conc 34.1 g/dl (32-36); Mean Corpuscular Hemoglobin 33.3 pg (26-34); Mean Corpuscular Volume 97.6 fl (80-100); Mean Platelet Volume 9.9 fl (7.4-10.4); Platelet Count Result 178 k/mm3 (150-375); Red Blood Count 2.94 M/mm3 (4.2-5.4); Red Cell Distribution Width 11.7 % (11.5-14.5); White Blood Count 6.1 K/mm3 (4.5-10.0)
[2020-08-16 05:44] LABS: Alanine Aminotransferase 375 U/L (4-35); Albumin Level 3.2 g/dL (3.5-5.1); Alkaline Phosphatase 113 U/L (38-126); Anion Gap 3 mmol/L (8-16); Aspartate Amino Transferase 316 U/L (14-36); Bilirubin,Total 0.2 mg/dL (0.2-1.3); Blood Urea Nitrogen 15 mg/dL (7-17); Calcium 8.6 mg/dL (8.4-10.2); Carbon Dioxide 31 mmol/L (22-30); Chloride 100 mmol/L (98-107); Estimated CRCL calculation 37 ml/min; Estimated Glomerular Filt Rate 54; Glucose 108 mg/dL (65-105); Magnesium 1.8 mg/dL (1.6-2.3); Potassium 4.2 mmol/L (3.4-5.0); Sodium 134 mmol/L (137-145)
[2020-08-16 05:48] VITALS: BP 113/53; PULSE 89; RESP 18; TEMP 36.1; O2SAT 93
[2020-08-16] MEDS: HYDROcodone/acetaminophen (*CRX) 5-325 MG TABLET 1 TAB PO (06:04)
[2020-08-16] MEDS: LEVOTHYROXINE SODIUM 50 MCG TABLET PO (06:05)
[2020-08-16] MEDS: ENOXAPARIN 40 MG/0.4 ML SYRINGE SUB-Q (09:11)
[2020-08-16] MEDS: NITROFURANTOIN MONOHYD MACROCR 100 MG CAP PO ×2 (09:11→20:40)
[2020-08-16] MEDS: lamoTRIgine 25 MG TABLET 50 MG PO ×2 (09:12→20:39)
[2020-08-16] MEDS: MORPHINE SULFATE (*CRX) 4 MG/ML INJ 2 MG IV PUSH ×2 (09:22→15:13)
--- NOTE | 2020-08-16 09:23 | PM.IMPN ---
Progress Note: A&P Assessment and Plan (1) Fracture of left pelvis: Qualifiers: Encounter type: initial encounter Pelvic bone location: ischium Fracture type: closed Fracture morphology: unspecified fracture morphology Fracture alignment: nondisplaced Qualified Code(s): S32.602A - Unspecified fracture of left ischium, initial encounter for closed fracture Code(s): S32.9XXA - Fracture of unspecified parts of lumbosacral spine and pelvis, initial encounter for closed fracture Status: Acute Assessment and Plan: S/p mechanical fall at home off one step. No associated symptoms surrounding fall. CT pelvis showed insufficiency fractures of left sacral ala, left superior and inferior pubic rami, and left parasymphyseal pubis. Orthopedic Surgery consulted and appreciate recommendations. Pain better today, but still occasionally having breakthrough pain and requested IV Morphine today Continue conservative treatment with pain control and PT/OT with toe touch weight bearing status on left LE per Ortho rec Continue PT/OT Pain control with Tylenol and [place] PRN and Morphine IV for breakthrough pain; likely remove morphine tomorrow if tolerated CC working on placement Will do Lovenox for DVT ppx, likely through SNF She will need f/u with Ortho as outpatient Once patient ambulating more, will remove Garces Monitor for now (2) UTI (urinary tract infection): Code(s): N39.0 - Urinary tract infection, site not specified Status: Acute Assessment and Plan: UA suggestive of UTI with 3+ leuk est, trace bacteria, RBCs, with occasional squam epith cells. UCx growing E. coli ESBL; resistant to IV Rocephin. Transitioned from Rocephin to PO macrobid today. She does not appear septic/ill. She has frequent UTIs. No urinary symptoms lately Will treat for UTI given recent fall Continue Macrobid PO through 08/22 Remove Garces as soon as possible; she is hesitant today so will consider removal tomorrow or during rehab stay Monitor (3) Leukocytosis: Qualifiers: Leukocytosis type: unspecified Qualified Code(s): D72.829 - Elevated white blood cell count, unspecified Code(s): D72.829 - Elevated white blood cell count, unspecified Status: Acute Assessment and Plan: 2/2 possible UTI vs recent trauma from fall. WNL today Continue treatment for UTI as noted above Trend WBC (4) Transaminitis: Code(s): R74.01 - Elevation of levels of liver transaminase levels Status: Acute Assessment and Plan: Significantly improved overnight. RUQ US unremarkable and hepatitis panel negative. Bili normal. Possibly due to medications vs more likely trauma. Patient asymptomatic. Abd exam unremarkable Trend for now Consider further work up if persistently elevated or if patient develops symptoms hold statin; resume when LFTs normalize (5) Mixed hyperlipidemia: Code(s): E78.2 - Mixed hyperlipidemia Status: Chronic Assessment and Plan: Statin held for now (6) Major depressive disorder, recurrent, unspecified: Qualifiers: Active/Remission status: remission status unspecified Qualified Code(s): F33.9 - Major depressive disorder, recurrent, unspecified Code(s): F33.9 - Major depressive disorder, recurrent, unspecified Status: Chronic Assessment and Plan: Continue home medications for now (7) Hypothyroidism, unspecified: Qualifiers: Hypothyroidism type: unspecified Qualified Code(s): E03.9 - Hypothyroidism, unspecified Code(s): E03.9 - Hypothyroidism, unspecified Status: Chronic Assessment and Plan: TSH WNL Continue home levothyroxine
[2020-08-16 09:30] VITALS: RESP 18; O2SAT 94
[2020-08-16] MEDS: polyethylene glycoL 3350 17 GM POWD.PACK PO (09:38)
[2020-08-16 14:10] VITALS: BP 108/63; PULSE 99; RESP 16; TEMP 36.5; O2SAT 96
[2020-08-16 19:43] LABS: SARS-CoV-2 RNA PCR Negative
[2020-08-16] MEDS: NORTRIPTYLINE HCL 25 MG CAPSULE 50 MG PO (20:40)
[2020-08-16 20:54] VITALS: BP 122/61; PULSE 91; RESP 18; TEMP 36.7; O2SAT 99
[2020-08-16 22:33] VITALS: O2SAT 96
[2020-08-17] MEDS: CALCIUM CARBONATE (TUMS) 500 MG (200 MG ELEMENTAL) PO (05:02)
[2020-08-17] MEDS: HYDROcodone/acetaminophen (*CRX) 5-325 MG TABLET 1 TAB PO (05:04)
[2020-08-17] MEDS: LEVOTHYROXINE SODIUM 50 MCG TABLET PO (05:08)
[2020-08-17 05:24] LABS: Hemoglobin 9.4 g/dL (12.0-15.0); Mean Corpuscular HGB Conc 34.8 g/dl (32-36); Mean Corpuscular Hemoglobin 34.2 pg (26-34); Mean Corpuscular Volume 98.2 fl (80-100); Mean Platelet Volume 9.8 fl (7.4-10.4); Platelet Count Result 171 k/mm3 (150-375); Red Blood Count 2.75 M/mm3 (4.2-5.4); Red Cell Distribution Width 11.8 % (11.5-14.5); White Blood Count 6.8 K/mm3 (4.5-10.0)
[2020-08-17 05:45] LABS: Potassium 4.3 mmol/L (3.4-5.0)
[2020-08-17 05:49] LABS: Alanine Aminotransferase 250 U/L (4-35); Albumin Level 3.3 g/dL (3.5-5.1); Alkaline Phosphatase 116 U/L (38-126); Anion Gap 5 mmol/L (8-16); Aspartate Amino Transferase 149 U/L (14-36); Bilirubin,Total 0.3 mg/dL (0.2-1.3); Blood Urea Nitrogen 14 mg/dL (7-17); Calcium 8.6 mg/dL (8.4-10.2); Carbon Dioxide 29 mmol/L (22-30); Chloride 97 mmol/L (98-107); Estimated CRCL calculation 40 ml/min; Estimated Glomerular Filt Rate > 60; Glucose 98 mg/dL (65-105); Magnesium 1.8 mg/dL (1.6-2.3); Sodium 131 mmol/L (137-145)
[2020-08-17 05:58] VITALS: BP 123/58; PULSE 91; RESP 18; TEMP 36.4; O2SAT 94
[2020-08-17] MEDS: ENOXAPARIN 40 MG/0.4 ML SYRINGE SUB-Q (08:32)
[2020-08-17] MEDS: lamoTRIgine 25 MG TABLET 50 MG PO (08:32)
[2020-08-17 08:33] VITALS: RESP 18; O2SAT 94
[2020-08-17] MEDS: polyethylene glycoL 3350 17 GM POWD.PACK PO (08:33)
[2020-08-17] MEDS: NITROFURANTOIN MONOHYD MACROCR 100 MG CAP PO (08:33)
--- NOTE | 2020-08-17 08:38 | PM.DS ---
DS: Admitting Diagnosis Admitting Diagnosis Admitting Diagnosis: Pelvic fractures, leukocytosis DS: Discharge Diagnosis Discharge Diagnosis (1) Fracture of left pelvis: Qualifiers: Encounter type: initial encounter Fracture alignment: nondisplaced Fracture morphology: unspecified fracture morphology Fracture type: closed Pelvic bone location: ischium Qualified Code(s): S32.602A - Unspecified fracture of left ischium, initial encounter for closed fracture Code(s): S32.9XXA - Fracture of unspecified parts of lumbosacral spine and pelvis, initial encounter for closed fracture Status: Acute Assessment and Plan: S/p mechanical fall at home off one step. No associated symptoms surrounding fall. CT pelvis showed insufficiency fractures of left sacral ala, left superior and inferior pubic rami, and left parasymphyseal pubis. Orthopedic Surgery consulted and appreciate recommendations. Pain better today Discharge today to SNF Continue conservative treatment with pain control and PT/OT with toe touch weight bearing status on left LE per Ortho rec Pain control with Tylenol and [place] PRN Will do Lovenox for DVT ppx, will do 10 days after discharge She will need f/u with Ortho as outpatient Once patient ambulating more, recommend removing Garces (2) UTI (urinary tract infection): Code(s): N39.0 - Urinary tract infection, site not specified Status: Acute Assessment and Plan: UA suggestive of UTI with 3+ leuk est, trace bacteria, RBCs, with occasional squam epith cells. UCx growing E. coli ESBL; resistant to IV Rocephin. On PO macrobid since 08/16. She does not appear septic/ill. She has frequent UTIs. No urinary symptoms lately Will treat for UTI given recent fall Continue Macrobid PO through 08/20 Remove Garces as soon as possible; she is hesitant today given limited mobilityso will rec removal during rehab stay (3) Leukocytosis: Qualifiers: Leukocytosis type: unspecified Qualified Code(s): D72.829 - Elevated white blood cell count, unspecified Code(s): D72.829 - Elevated white blood cell count, unspecified Status: Acute Assessment and Plan: 2/2 possible UTI vs recent trauma from fall. WNL today Continue treatment for UTI as noted above Trend WBC next week as op (4) Transaminitis: Code(s): R74.01 - Elevation of levels of liver transaminase levels Status: Acute Assessment and Plan: Significantly improved overnight. RUQ US unremarkable and hepatitis panel negative. Bili normal. Possibly due to medications vs more likely trauma. Patient asymptomatic. Abd exam unremarkable Trend for now. CMP next week as op Consider further work up if persistently elevated or if patient develops symptoms hold statin; resume next week (5) Mixed hyperlipidemia: Code(s): E78.2 - Mixed hyperlipidemia Status: Chronic Assessment and Plan: Statin held for now Resume next week (6) Major depressive disorder, recurrent, unspecified: Qualifiers: Active/Remission status: remission status unspecified Qualified Code(s): F33.9 - Major depressive disorder, recurrent, unspecified Code(s): F33.9 - Major depressive disorder, recurrent, unspecified Status: Chronic Assessment and Plan: Continue home medications for now (7) Hypothyroidism, unspecified: Qualifiers: Hypothyroidism type: unspecified Qualified Code(s): E03.9 - Hypothyroidism, unspecified Code(s): E03.9 - Hypothyroidism, unspecified Status: Chronic Assessment and Plan: TSH WNL Continue home levothyroxine (8) Chronic kidney disease, stage 3 (moderate): Q
== END 2020-08-17 12:10 | DRG 536 ==
LOC: ANHED 16:38 → ANH2MED 20:35
PROVIDERS: Physician Assistant; Admitting Provider Family Medicine; Emergency Provider General Practice; PCP Family Medicine; Visit Provider Family Medicine
DX: S32.692A Other specified fracture of left ischium, initial encounter for closed fracture (principal); N39.0 Urinary tract infection, site not specified; N18.30 Chronic kidney disease, stage 3 unspecified; E03.9 Hypothyroidism, unspecified; F32.9 Major depressive disorder, single episode, unspecified; D50.9 Iron deficiency anemia, unspecified; W19.XXXA Unspecified fall, initial encounter; E78.2 Mixed hyperlipidemia; R74.01 Elevation of levels of liver transaminase levels; Z20.822 Contact with and (suspected) exposure to COVID-19
CPT/HCPCS: 36415; 70450; 71045; 72125; 72192; 73502; 76705; 80053; 80074; 81001; 83690; 83735; 84443; 84484; 85025; 85027; 87077; 87086; 87088; 87186; 93005; 96361; 96365; 96375; 96376; 97110; 97116; 97161; 97165; 97530; 97535; 99285; A9270; C9803; G0378; J0696; J1650; J2270; J7030; U0003; U0005

== ENCOUNTER 2021-11-04 14:13 | Outpatient (CLI) | payer MEDICARE, SELFPAY ==
--- NOTE | ~2021-11-04 | MM_ITS ---
EXAMINATION: MM screening gildardo RT w duy HISTORY: Screening right mammogram, history of left mastectomy TECHNIQUE: Craniocaudal and mediolateral oblique 3-D tomosynthesis images were obtained and synthetic 2-D images were generated. CAD analysis was submitted and interpreted. COMPARISON: 06/23/2016, 05/27/2015 BREAST PARENCHYMAL COMPOSITION: There are scattered areas of fibroglandular density. FINDINGS: There is no suspicious mass, calcification, or architectural distortion to suggest malignan cy. There has been no suspicious interval change. IMPRESSION: 1. No mammographic evidence of malignancy. 2. Recommend routine screening mammography in one year. BI-RADS Category 1: Negative Reviewed, dictated and finalized at location A.
== END 2021-11-04 14:14 | disposition home or self-care (01) ==
LOC: ANHIMG 14:15
PROVIDERS: PCP Family Medicine; Visit Provider Physician Assistant
DX: Z12.31 Encounter for screening mammogram for malignant neoplasm of breast (principal)
CPT/HCPCS: 77063; 77067

== ENCOUNTER 2022-01-05 15:30 | Outpatient (CLI) | payer MEDICARE, SELFPAY ==
--- NOTE | ~2022-01-05 | DEXA_ITS ---
Bone Density Report Name: TISH HOPE Age: 76 Sex: Female Ethnicity: White Date of : 1945 Indication: osteopenia; height loss; prior fracture; cancer; postmenopausal Referring Provider: SPEEDY REID Study: Bone densitometry was performed. Exam Date: January 05, 2022 Accession number: [id number] Bone Density: Region BMD T-score Z-score Classification AP Spine(L1-L4) 0.873 -1.6 0.8 Osteopenia Femoral Neck (Left) 0.615 -2.1 -0.1 Osteopenia Total Hip (Left) 0.715 -1.9 -0.1 Osteopenia Femoral Neck (Right) 0.603 -2.2 -0.2 Osteopenia Total Hip (Right) 0.695 -2.0 -0.3 Osteopenia Total Hip Mean 0.705 -2.0 -0.2 Osteopenia World Health Organization criteria for BMD impression classify patients as: Normal (T-score at or above -1.0), Osteopenia (T-score between -1.0 and -2.5), or Osteoporosis (T-score at or below -2.5). 10-year Fracture Risk: FRAX not reported because: Prior hip or vertebral fracture Previous Exams: Region Exam Age BMD T-score BMD Change BMD Change Date g/cm2 vs Baseline vs Previous AP Spine (L1-L4) 01/05/2022 76 0.873 -1.6 0.052 (6.4%)# 0.009 (1.1%) 06/23/2016 70 0.863 -1.7 0.043 (5.3%)# 0.043 (5.3%)# 09/26/2012 67 0.820 -2.1 Total Hip(Left) 01/05/2022 76 0.715 -1.9 -0.093 (-11.5% -0.054 (-7.0%) 06/23/2016 70 0.769 -1.4 -0.039 (-4.9%) -0.039 (-4.9%) 09/26/2012 67 0.808 -1.1 Total Hip(Right) 01/05/2022 76 0.695 -2.0 -0.073 (-9.5%) -0.062 (-8.2%) 06/23/2016 70 0.757 -1.5 -0.011 (-1.5%) -0.011 (-1.5%) 09/26/2012 67 0.769 -1.4 *Denotes significance at 95% confidence level, LSC for AP Spine = 0.022 g/cm2, LSC for Total Hip = 0.027 g/cm2 # Denotes dissimilar scan types or analysis methods Clinical Information Provided by Patient: Have had a previous hip or vertebral fracture Has had a low trauma fracture Has used the following medications: Vitamin D, Calcium Has the following medical conditions: Cancer Patient maximum height was 64 Menopause Age: 54 No regular weight bearing exercise Does not regularly consume dairy products Onset of menses at age 13 Number of children 4 Impression: The patient has low bone mass, based on the Right Femoral Neck T-score. The patient has risk factors, including: previous fracture. The BMD for the Total Hip(Left) decreased, changing by -7.0% since the last DXA exam. The BMD for the Total Hip(Right) decreased, changing by -8.2% since the last
== END 2022-01-05 15:31 | disposition home or self-care (01) ==
LOC: ANHIMG 15:33
PROVIDERS: PCP Family Medicine; Visit Provider Physician Assistant
DX: Z78.0 Asymptomatic menopausal state (principal); M85.88 Other specified disorders of bone density and structure, other site; M85.852 Other specified disorders of bone density and structure, left thigh; M85.851 Other specified disorders of bone density and structure, right thigh
CPT/HCPCS: 77080

== ENCOUNTER 2022-03-05 19:11 | Observation (INO) | payer MEDICARE, SELFPAY ==
[2022-03-05] VITALS (18 sets, daily range): BP systolic 141–151; BP diastolic 72–83; PULSE 79–88; RESP 18–25; TEMP 36.4–36.5; O2SAT 97–100; BMI 31.9
--- NOTE | ~2022-03-05 | XR_ITS ---
EXAMINATION: XR chest 2V DATE: 03/05/2022 19:54 INDICATION: Lower limb edema. TECHNIQUE: Frontal and lateral views of the chest were obtained. COMPARISON: Chest single view 08/14/2020, CT abdomen and pelvis 11/08/2016 FINDINGS: The lung volumes are normal. There is interstitial pattern in right lower lung zone. No ple ural effusion or pneumothorax. The heart size is normal. There is a left-sided breast implant. There are surgical clips in left axilla. Surgical clips in the right upper quadrant are likely from cholecy stectomy. IMPRESSION: 1. Mild chronic interstitial lung disease. Reviewed, dictated and finalized at location A.
--- NOTE | ~2022-03-05 | US_ITS ---
EXAMINATION: US venous doppler [facility] DATE: 03/06/2022 08:38 INDICATION: Lower limb edema. TECHNIQUE: Grayscale ultrasound images without and with compression and Doppler ultrasound images of the bilateral lower extremity veins were obtained. COMPARISON: None. FINDINGS: The visualized portions of right common femoral vein, profunda (deep) femoral vein, femoral vein, pop liteal vein, peroneal veins, posterior tibial veins, and greater saphenous vein outflow are patent. The visualized portions of left common femoral vein, profunda femoral vein, femoral vein, popliteal v ein, peroneal veins, posterior tibial veins, and greater saphenous vein outflow are patent. IMPRESSION: 1. No deep venous thrombosis. Reviewed, dictated and finalized at location A.
--- NOTE | 2022-03-05 19:41 | ECG_ITS ---
Measurements Intervals [place] Rate: 82 P: 62 GA: 182 QRS: 29 QRSD: 102 T: 46 QT: 358 QTc: 420 Interpretive Statements SINUS RHYTHM BASELINE WANDER- III, V3 NORMAL ECG COMPARED TO ECG 08/14/2020 16:23:23 NO SIGNIFICANT CHANGES Electronically Signed On 03-05-2022 21:33:34 CDT by Sukumar Lewis D.O.
--- NOTE | 2022-03-05 19:42 | ED.LOWEXIN ---
HPI - Extremity Injury (Lower) General Chief Complaint: Extremity Injury, Lower Stated Complaint: swollen legs Time Seen by Provider: 03/05/22 19:35 History of Present Illness HPI Narrative: Patient is a 76-year-old female here for evaluation of bilateral lower extremity swelling for the past day. Patient states that her legs will swell up occasionally and improves with elevation. She states today her legs are more swollen than usual prompting her evaluation. Patient has been drinking lots of water recently as she has been very thirsty. She denies significant pain in her legs. No history of CHF. No chest pain, shortness of breath, fevers or chills, redness to the legs, confusion. Related Data Home Medications Medication Instructions Recorded Confirmed levothyroxine 50 mcg tablet 50 mcg PO DAILY 08/07/20 03/04/22 (Synthroid) lamotrigine 50 mg PO BID 08/14/20 03/04/22 nortriptyline 50 mg capsule 50 mg PO HS 08/14/20 03/04/22 tetrabenazine 25 mg tablet 25 mg PO DAILY 03/04/22 03/04/22 tramadol 100 mg tablet 100 mg PO QHS 03/04/22 03/04/22 Allergies Allergy/AdvReac Type Severity Reaction Status Date / Time ciprofloxacin Allergy Unknown Nausea Verified 03/05/22 19:39 doxycycline Allergy Unknown Nausea Verified 03/05/22 19:39 lithium Allergy Unknown Unknown Verified 03/05/22 19:39 Sulfa (Sulfonamide Allergy Unknown Nausea Verified 03/05/22 19:39 Antibiotics) Review of Systems Review of Systems: Gen: Denies fevers or chills Eyes: Denies eye pain or visual change ENT: Denies congestion Respiratory: Denies shortness of breath or cough CV: Denies chest pain or palpitations GI: Denies abdominal pain nausea, emesis or diarrhea : denies burning, urgency, frequency or hematuria Musculoskeletal: Reports bilateral lower extremity swelling. Neuro: Denies numbness, tingling, weakness or focal weakness Skin: Denies rash Except as documented, all other systems reviewed and negative [facility] Past Medical History Medical History (Updated 03/05/22 @ 23:35 by Dori Iniguez NP) Actinic keratosis Chronic kidney disease, stage 3 (moderate) Closed sacral fracture History of subarachnoid hemorrhage Hypothyroidism, unspecified Iron deficiency anemia, unspecified Major depressive disorder, recurrent, unspecified Mixed hyperlipidemia Sacral fracture Surgical History Surgical History H/O mastectomy left breast History of augmentation of left breast History of tonsillectomy Hx of cholecystectomy Family History Family History Grandparent Diabetes mellitus Father Family history of elevated blood lipids Family history of cardiovascular disease Family history of coronary artery disease Family history of renal cell carcinoma Sibling Family history of lung cancer Social History Social History (Updated 03/05/22 @ 23:20 by Dori Iniguez NP) Social History: The patient is and has 3 daughters and one son. Her son is . Her sister Janice clements is her power assistant attorney general for healthcare. The patient is a lifelong nonsmoker. She does not use any alcohol marijuana or illicit drugs. Code status full code Smoking status: Never smoker Alcohol intake: never Substance use: never Gender identity (if verbalized by the patient): Female Spiritual care concerns: No Exam Narrative: APPEARANCE: Well appearing, no pain in distress, well-nourished. Head: Normocephalic and atraumatic. EYES: PERRLA/EOMI, conjunctivae clear NOSE: No nasal drainage EARS: External ear normal in appearance THROAT: Oropharynx is clear. Mucous membranes are moist. NECK: Supple. No adenopathy, no masses. RESPIRATORY: Airway patent, respirations nonlabored. Clear to auscultation bilaterally, no rales, rhonchi, wheezing. CARDIOVASCULAR: Doppler signals heard to bilateral dp/pt pulses. Regular rate and rhythm without
[2022-03-05 19:53] LABS: Basophils Percent Auto 0.3 % (0.2-1.2); Eosinophils Absolute Auto 0.2 K/mm3 (0-0.3); Eosinophils Percent Auto 2.7 % (0-4.4); Hematocrit 30.2 % (37.0-47.0); Hemoglobin 10.7 g/dL (12.0-15.0); Immature Granulocyte Absolute 0.02 K/mm3 (0.00-0.031); Immature Granulocyte Percent A 0.3 % (0-0.5); Lymphocytes Absolute Auto 2.08 K/mm3 (0.9-3.2); Mean Corpuscular HGB Conc 35.4 g/dl (32-36); Mean Corpuscular Hemoglobin 34.6 pg (26-34); Mean Corpuscular Volume 97.7 fl (80-100); Mean Platelet Volume 9.4 fl (7.4-10.4); Monocytes Absolute Auto 0.7 K/mm3 (0.1-0.6); Monocytes Percent Auto 10.3 % (2.6-8.5); Neutrophils Absolute Auto 3.4 K/mm3 (1.3-6.7); Neutrophils Percent Auto 53.4 % (45.5-73.1); Platelet Count Result 209 k/mm3 (150-375); Red Blood Count 3.09 M/mm3 (4.2-5.4); Red Cell Distribution Width 11.5 % (11.5-14.5); White Blood Count 6.3 K/mm3 (4.5-10.0)
[2022-03-05 20:04] LABS: Alanine Aminotransferase 21 U/L (6-35); Albumin Level 4.2 g/dL (3.5-5.1); Alkaline Phosphatase 73 U/L (38-126); Anion Gap 11 mmol/L (8-16); Aspartate Amino Transferase 36 U/L (14-36); Bilirubin,Total 0.3 mg/dL (0.2-1.3); Blood Urea Nitrogen 28 mg/dL (7-17); Calcium 9.5 mg/dL (8.4-10.2); Carbon Dioxide 26 mmol/L (22-30); Chloride 85 mmol/L (98-107); Estimated CRCL calculation 38 ml/min; Estimated Glomerular Filt Rate 49; Glucose 97 mg/dL (65-110); Sodium 122 mmol/L (137-145)
[2022-03-05 20:11] LABS: NT Pro B Type Natriuretic Pept 801 pg/mL (5-100)
[2022-03-05 20:53] LABS: Appearance Urine Clear (Clear); Bilirubin Urine Negative (Negative); Blood Urine Negative (Negative); Color Urine Yellow (Yellow); Glucose Urine UA Negative (Negative); Ketones Urine Negative (Negative); Leukocyte Esterase Ur Trace LEU/UL (Negative); Nitrate Urine Negative (Negative); Protein Urine Negative (Negative); Urobilinogen Urine 0.2 mg/dL (<2.0)
[2022-03-05 20:59] LABS: Add Urine Microscopic? YES; RBC Urine 0-2 /hpf (0-2); Squamous Epithelial Cell Urine Rare /hpf (Few)
--- NOTE | 2022-03-05 22:44 | PM.IMHP ---
H&P: HPI History of Present Illness Date/Time: 03/05/22 22:44 Chief Complaint: Swelling leg Narrative: This is a 76-year-old female patient who has no prior history of CHF. The patient has a history of depression with anxiety and has been on Lamictal for many years. The patient stated that she does not have any air conditioning in her home but she does have some bands and she has been drinking lots of water since she has been so hot. She is not on any diuretics. The patient stated that she has been having swelling over the last several days. She did call her primary care doctor who urged her to come to the emergency room. The patient is not short of breath or having any fever or chills. She has no redness to her lower extremities. H&H is 10.7 and 30.2. She has chronic renal failure and her creatinine is 1.1. Previously 1.3. Patient's sodium was 122 previous sodium on 04/13/2021 was 132. She is not on any diuretic. Urine specific gravity is 1.010. Your protein is negative. The only new prescription that the patient has taken is tetrabenazine which should not cause hypo natremia. She does have hypothyroid and has not had her thyroid checked lately. Chest x-ray is read as mild chronic interstitial lung disease. No medications were given in the emergency room. The patient is being admitted to observation status on the date of service of 03/05/2022. Review of Systems Review of Systems: See HP All systems reviewed & are unremarkable except as noted in HPI and below Constitutional: Constitutional: Reports as per HPI and Reports no additional constitutional complaints Eyes: Eyes: Reports as per HPI and Reports no additional eye complaints ENT: Reports system reviewed and no additional complaints, except as documented and Reports Normal hearing present Cardiovascular: Cardiovascular: Reports no additional cardiovascular complaints Respiratory: Respiratory: Reports no additional respiratory complaints and Reports no additional respiratory complaints Gastrointestinal: Gastrointestinal: Reports as per HPI and Reports no additional gastrointestinal complaints Musculoskeletal: Musculoskeletal: Reports no additional musculoskeletal complaints Integumentary/Breasts: Skin/Breast: Reports system reviewed and no additional complaints, except as docu and Reports as per HPI Neurologic: Reports system reviewed and no additional complaints, except as documented, Reports as per HPI and Reports Normal hearing present Psychiatric: Psychiatric: Reports no additional psychiatric complaints and Reports as per HPI Endocrine: Endocrine: Reports no additional endocrine complaints Hematologic/Lymphatic: Hematologic/Lymphatic: Reports no additional hematologic/lymphatic complaints Allergic/Immunologic: Allergic/Immunologic: Reports no additional allergic/immunologic complaints [facility] Past Medical History Medical History (Updated 03/05/22 @ 23:35 by Dori Iniguez NP) Actinic keratosis Chronic kidney disease, stage 3 (moderate) Closed sacral fracture History of subarachnoid hemorrhage Hypothyroidism, unspecified Iron deficiency anemia, unspecified Major depressive disorder, recurrent, unspecified Mixed hyperlipidemia Sacral fracture Surgical History Surgical History H/O mastectomy left breast History of augmentation of left breast History of tonsillectomy Hx of cholecystectomy Family History Family History Grandparent Diabetes mellitus Father Family history of elevated blood lipids Family history of cardiovascular disease Family history of coronary artery disease Family history of renal cell carcinoma Sibling Family history of lung cancer Social History Social History (Updated 03/05/22 @ 23:20 by Dori Iniguez NP) Social History: The patient is and has 3 daughters and one son. Her son is .
[2022-03-05 23:00] LABS: Phosphorus 3.6 mg/dL (2.5-4.5)
[2022-03-05 23:26] LABS: Potassium Urine Random 19.6 meq/L; Sodium Urine Random 19 meq/L
--- NOTE | 2022-03-05 23:59 | PC.NURSE ---
This patient, Laya Castillo, was admitted to Medical Room 347-. Patient/family oriented to hospital policies and general routines including ID bracelet, bed and alarms, visiting hours, pain management, procedures, bathroom and other care routines, personal items, smoking policy, room service/diet, and visiting hours. Information on how to activate the Rapid Response Team has been discussed. Patient/Family are encouraged to report perceived risks to care and to ask questions if they do not understand what they are told or what they should do.
--- NOTE | 2022-03-06 | ECHO_ITS ---
Patient Info Name: Laya Castillo Age: 76 years : 1945 Gender: Female Ht: 62 in Wt: 174 lbs BSA: 1.89 m2 HR: 99 bpm BP: 140 / 62 mmHg Technical Quality: Fair Exam Date: 03/06/2022 7:15 AM Exam Location: [facility] Pulmonary Patient Status: Inpatient Admit Date: 03/05/2022 Staff Ordering Physician: Dori Iniguez NP Furniture Mover Driver: Janice Gary RDCS Attending Provider: Letha Perdomo DO Referring Physician: Geetha GARDNER; Exam Type: CA echo doppler color flow Study Info Indications J81.0 - Acute pulmonary edema Complete two-dimensional, color flow and Doppler transthoracic echocardiogram is performed. Summary 1. Complete two-dimensional, color flow and Doppler transthoracic echocardiogram is performed. 2. Left ventricular chamber dimension is normal. 3. Left ventricular systolic function is normal, estimated at 60-65%. 4. There is mildly increased left ventricular wall thickness. 5. The left ventricular diastolic function is grade I diastolic dysfunction. 6. E/e' 13 is mildly elevated. 7. There is mild aortic valve sclerosis. Left Ventricle E/e' 13 is mildly elevated. Left ventricular chamber dimension is normal. Left ventricular systolic function is normal, estimated at 60-65%. There is mildly increased left ventricular wall thickness. The left ventricular diastolic function is grade I diastolic dysfunction. Right Ventricle Right ventricular chamber dimension is normal. Right ventricular systolic function is normal. Left Atria Left atrial chamber dimension is normal. Right Atria Right atrial chamber dimension is normal. Aortic Valve The aortic valve is trileaflet. There is mild aortic valve sclerosis. There is no aortic valve stenosis. There is no aortic valve regurgitation. Pulmonic Valve There is no pulmonic regurgitation. Mitral Valve There is no mitral valve stenosis. There is no mitral valve regurgitation. Tricuspid Valve There is no tricuspid valve regurgitation. Pericardium/Pleural There is no pericardial effusion. Inferior Vena Cava Normal inferior vena cava with >50% collapse upon inspiration consistent with normal right atrial pressure, 5 mmHg. Aorta The aortic root size at the sinus of Valsalva is not well visualized. Left Ventricular Outflow Tract Name Value Normal LVOT 2D LVOT Diameter 2.2 cm LVOT Doppler LVOT Peak Gradient 2 mmHg LVOT Mean Gradient 1 mmHg LVOT VTI 17 cm LVOT VTI/AV VTI Ratio 0.7 LVOT Stroke Volume 65 ml LVOT CO 4.8 l/min LVOT CI 2.5 l/min/m2 Pulmonic Valve Name Value Normal PV Doppler PV Peak Gradient 3 mmHg Mitral Valve
[2022-03-06 04:02] VITALS: BP 140/62; PULSE 82; RESP 16; TEMP 36.6; O2SAT 99
[2022-03-06 05:45] LABS: Basophils Percent Auto 0.4 % (0.2-1.2); Eosinophils Absolute Auto 0.2 K/mm3 (0-0.3); Eosinophils Percent Auto 3.9 % (0-4.4); Hematocrit 29.4 % (37.0-47.0); Hemoglobin 10.4 g/dL (12.0-15.0); Immature Granulocyte Absolute 0.01 K/mm3 (0.00-0.031); Immature Granulocyte Percent A 0.2 % (0-0.5); Lymphocytes Absolute Auto 1.88 K/mm3 (0.9-3.2); Lymphocytes Percent Auto 38.9 % (18.3-44.2); Mean Corpuscular HGB Conc 35.4 g/dl (32-36); Mean Corpuscular Volume 96.1 fl (80-100); Mean Platelet Volume 9.7 fl (7.4-10.4); Monocytes Absolute Auto 0.5 K/mm3 (0.1-0.6); Monocytes Percent Auto 9.7 % (2.6-8.5); Neutrophils Absolute Auto 2.3 K/mm3 (1.3-6.7); Neutrophils Percent Auto 46.9 % (45.5-73.1); Platelet Count Result 216 k/mm3 (150-375); Red Blood Count 3.06 M/mm3 (4.2-5.4); Red Cell Distribution Width 11.4 % (11.5-14.5); White Blood Count 4.8 K/mm3 (4.5-10.0)
[2022-03-06 05:59] LABS: Lactic Acid Reflex 0.7 mmol/L (0.7-2.0)
[2022-03-06 06:11] LABS: Alanine Aminotransferase 19 U/L (6-35); Albumin Level 3.7 g/dL (3.5-5.1); Alkaline Phosphatase 76 U/L (38-126); Anion Gap 10 mmol/L (8-16); Aspartate Amino Transferase 32 U/L (14-36); Bilirubin,Total 0.5 mg/dL (0.2-1.3); Blood Urea Nitrogen 22 mg/dL (7-17); CRP < 0.5 mg/dL (<1.0); Calcium 9.4 mg/dL (8.4-10.2); Carbon Dioxide 25 mmol/L (22-30); Chloride 92 mmol/L (98-107); Estimated CRCL calculation 39 ml/min; Estimated Glomerular Filt Rate 49; Glucose 104 mg/dL (65-110); Lactate Dehydrogenase 177 U/L (120-246); Lipase 37 U/L (23-300); Magnesium 1.9 mg/dL (1.6-2.3); Potassium 3.6 mmol/L (3.4-5.0); Sodium 127 mmol/L (137-145)
--- NOTE | 2022-03-06 10:33 | PM.IMPN ---
Progress Note: A&P Assessment and Plan (1) Hyponatremia: Code(s): E87.1 - Hypo-osmolality and hyponatremia Status: Acute Assessment and Plan: Improving on fluid restriction, continue, recheck tomorrow (2) Major depressive disorder, recurrent, unspecified: Qualifiers: Active/Remission status: remission status unspecified Qualified Code(s): F33.9 - Major depressive disorder, recurrent, unspecified Code(s): F33.9 - Major depressive disorder, recurrent, unspecified Status: Chronic Assessment and Plan: Stable (3) Iron deficiency anemia, unspecified: Code(s): D50.9 - Iron deficiency anemia, unspecified Status: Chronic Assessment and Plan: Stable (4) Hypothyroidism, unspecified: Qualifiers: Hypothyroidism type: unspecified Qualified Code(s): E03.9 - Hypothyroidism, unspecified Code(s): E03.9 - Hypothyroidism, unspecified Status: Chronic Assessment and Plan: Check TSH (5) Chronic kidney disease, stage 3 (moderate): Qualifiers: Chronic kidney disease stage 3 subtype: unspecified whether 3a or 3b Qualified Code(s): N18.30 - Chronic kidney disease, stage 3 unspecified Code(s): N18.3 - Chronic kidney disease, stage 3 (moderate) Status: Chronic Assessment and Plan: Stable, baseline appears to be 1.1, creatinine is 1.1 today (6) Obesity (BMI 30.0-34.9): Code(s): E66.9 - Obesity, unspecified Status: Acute Plan DVT prophylaxis with SCDs GI prophylaxis not indicated Code status full code Subjective Date/time seen: 03/06/22 10:33 Interval history: Patient states she feels much better than yesterday. No overnight events noted. No chest pain or shortness of breath. No nausea, vomiting or diarrhea. No fevers or chills. Review of Systems Review of Systems: 12 point review of systems was assessed and was negative except as noted in the HPI Exam Narrative: General: No acute distress, alert and oriented per baseline HEENT: Atraumatic, normocephalic, mucous membranes moist CV: Regular rate and rhythm, S1, S2 Lungs: Clear to auscultation bilaterally, no rales or crackles noted, no wheezes, good air entry Abdomen: Soft, nontender, nondistended Extremities: Normal to inspection Skin: No rashes noted, no lesions or wounds seen Psych: Euthymic, normal affect Objective Data Vital Signs Vital Signs: Vital Signs - 24 hr 03/05/22 19:17 03/05/22 19:36 03/05/22 20:13 Temperature 97.6 F Pulse Rate 85 82 Respiratory Rate 18 20 Blood Pressure 149/83 H Pulse Oximetry 100 100 98 Oxygen Delivery Room Air 03/05/22 20:15 03/05/22 20:31 03/05/22 20:32 Temperature Pulse Rate 81 80 81 Respiratory Rate 22 H 20 19 Blood Pressure 141/78 H Pulse Oximetry Oxygen Delivery 03/05/22 20:45 03/05/22 21:00 03/05/22 21:17 Temperature Pulse Rate 88 81 79 Respiratory Rate 25 H 19 18 Blood Pressure Pulse Oximetry 100 100 100 Oxygen Delivery 03/05/22 21:30 03/05/22 21:55 03/05/22 22:03 Temperature Pulse Rate 79 82 Respiratory Rate 19 21 H Blood Pressure Pulse Oximetry 100 97 98 Oxygen Delivery 03/05/22 22:19 03/05/22 22:30 03/05/22 22:45 Temperature Pulse Rate Respiratory Rate Blood Pressure Pulse Oximetry 97 98 97 Oxygen Delivery 03/05/22 23:01 03/05/22 23:02 03/05/22 23:31 Temperature 97.7 F Pulse Rate 81 81 83 Respiratory Rate 19 20 18 Blood Pressure 151/74 H 145/72 H Pulse Oximetry 99 99 Oxygen Delivery 03/05/22 23:55 03/06/22 04:02 Temperature 97.8 F Pulse Rate 82 Respiratory Rate 16 Blood Pressure 140/62 Pulse Oximetry 99 Oxygen Delivery Room Air Intake/Output Intake/Output: Intake & Output 03/03/22 03/04/22 03/05/22 03/06/22 23:59 23:59 23:59 23:59 Intake Total 480 Output Total 550 Balance -70 Meds/Results Medications: Active Medications G
[2022-03-06 11:15] VITALS: O2SAT 97
[2022-03-06 14:15] VITALS: BP 132/57; PULSE 87; RESP 16; TEMP 36.4; O2SAT 97
[2022-03-06 20:00] VITALS: PULSE 87; RESP 16; O2SAT 97
[2022-03-06 21:37] VITALS: BP 139/89; PULSE 90; RESP 16; TEMP 36.8; O2SAT 99
[2022-03-07 06:00] VITALS: BP 135/81; PULSE 16; RESP 94; TEMP 36.8; O2SAT 100
[2022-03-07 10:50] LABS: Alanine Aminotransferase 20 U/L (6-35); Albumin Level 4.4 g/dL (3.5-5.1); Alkaline Phosphatase 70 U/L (38-126); Anion Gap 10 mmol/L (8-16); Aspartate Amino Transferase 33 U/L (14-36); Bilirubin,Total 0.4 mg/dL (0.2-1.3); Blood Urea Nitrogen 20 mg/dL (7-17); Calcium 9.6 mg/dL (8.4-10.2); Carbon Dioxide 29 mmol/L (22-30); Chloride 96 mmol/L (98-107); Estimated CRCL calculation 43 ml/min; Estimated Glomerular Filt Rate 54; Glucose 82 mg/dL (65-110); Sodium 135 mmol/L (137-145)
[2022-03-07 10:54] LABS: Basophils Percent Auto 0.6 % (0.2-1.2); Eosinophils Absolute Auto 0.2 K/mm3 (0-0.3); Eosinophils Percent Auto 3.7 % (0-4.4); Hematocrit 35.6 % (37.0-47.0); Hemoglobin 11.9 g/dL (12.0-15.0); Immature Granulocyte Absolute 0.01 K/mm3 (0.00-0.031); Immature Granulocyte Percent A 0.2 % (0-0.5); Lymphocytes Absolute Auto 1.28 K/mm3 (0.9-3.2); Lymphocytes Percent Auto 26.3 % (18.3-44.2); Mean Corpuscular HGB Conc 33.4 g/dl (32-36); Mean Corpuscular Hemoglobin 33.3 pg (26-34); Mean Corpuscular Volume 99.7 fl (80-100); Mean Platelet Volume 9.7 fl (7.4-10.4); Monocytes Absolute Auto 0.4 K/mm3 (0.1-0.6); Monocytes Percent Auto 8.6 % (2.6-8.5); Neutrophils Absolute Auto 2.9 K/mm3 (1.3-6.7); Neutrophils Percent Auto 60.6 % (45.5-73.1); Platelet Count Result 251 k/mm3 (150-375); Red Blood Count 3.57 M/mm3 (4.2-5.4); Red Cell Distribution Width 11.6 % (11.5-14.5); White Blood Count 4.9 K/mm3 (4.5-10.0)
--- NOTE | 2022-03-07 14:07 | PM.IMPN ---
Progress Note: A&P Assessment and Plan (1) Hyponatremia: Code(s): E87.1 - Hypo-osmolality and hyponatremia Status: Acute Assessment and Plan: Up to 135 today, will discontinue fluid restriction, anticipate discharge tomorrow sodium remains stable (2) Major depressive disorder, recurrent, unspecified: Qualifiers: Active/Remission status: remission status unspecified Qualified Code(s): F33.9 - Major depressive disorder, recurrent, unspecified Code(s): F33.9 - Major depressive disorder, recurrent, unspecified Status: Chronic Assessment and Plan: Will restart home meds and reassess tomorrow, concern with how quickly patient's sodium resolved after being off medications that perhaps her medications are contributing to her hyponatremia, will need to monitor BMP outpatient and consider switching her decreasing her medications (3) Iron deficiency anemia, unspecified: Code(s): D50.9 - Iron deficiency anemia, unspecified Status: Chronic Assessment and Plan: Stable (4) Hypothyroidism, unspecified: Qualifiers: Hypothyroidism type: unspecified Qualified Code(s): E03.9 - Hypothyroidism, unspecified Code(s): E03.9 - Hypothyroidism, unspecified Status: Chronic Assessment and Plan: TSH within normal limits, continue home levothyroxine (5) Chronic kidney disease, stage 3 (moderate): Qualifiers: Chronic kidney disease stage 3 subtype: unspecified whether 3a or 3b Qualified Code(s): N18.30 - Chronic kidney disease, stage 3 unspecified Code(s): N18.3 - Chronic kidney disease, stage 3 (moderate) Status: Chronic Assessment and Plan: Creatinine down to 1 today (6) Obesity (BMI 30.0-34.9): Code(s): E66.9 - Obesity, unspecified Status: Acute Plan DVT prophylaxis with SCDs GI prophylaxis not indicated Code status full code Subjective Date/time seen: 03/07/22 14:07 Interval history: Patient is eager to go home. No complaints. No overnight events noted. No chest pain or shortness of breath. No nausea, vomiting or diarrhea. No fevers or chills. Review of Systems Review of Systems: 12 point review of systems was assessed and was negative except as noted in the HPI Exam Narrative: General: No acute distress, alert and oriented per baseline HEENT: Atraumatic, normocephalic, mucous membranes moist CV: Regular rate and rhythm, S1, S2 Lungs: Clear to auscultation bilaterally, no rales or crackles noted, no wheezes, good air entry Abdomen: Soft, nontender, nondistended Extremities: Normal to inspection, mild lymphedema noted bilateral lower extremities Skin: No rashes noted, no lesions or wounds seen Psych: Euthymic, normal affect Objective Data Vital Signs Vital Signs: Vital Signs - 24 hr 03/06/22 14:15 03/06/22 20:00 03/06/22 21:37 Temperature 97.6 F 98.2 F Pulse Rate 87 87 90 Respiratory Rate 16 16 16 Blood Pressure 132/57 L 139/89 Pulse Oximetry 97 97 99 Oxygen Delivery Room Air 03/07/22 06:00 Temperature 98.2 F Pulse Rate 16 L Respiratory Rate 94 H Blood Pressure 135/81 Pulse Oximetry 100 Oxygen Delivery Intake/Output Intake/Output: Intake & Output 03/04/22 03/05/22 03/06/22 03/07/22 23:59 23:59 23:59 23:59 Intake Total 960 480 Output Total 950 Balance 10 480 Meds/Results Medications: Active Medications Generic Name Dose Route Start Last Admin Trade Name Freq PRN Reason Stop Dose Admin Perflutren Lipid Microsphere 0 ml 03/05/22 23:23 Perflutren Lipid Microspheres 1.5 Ml Vial Diluted To 10 Ml Total Volume IV PUSH 03/07/22 23:23 ONCE PRN adequate visualization Protocol Radiology Results: ITS Impressions Chest X-Ray 03/05/22 19:56 IMPRESSION: 1. Mild chronic interstitial lung disease. Venous Doppler Study 03/06/22 08:53 IMPRESSION: 1. No deep venous thrombosis. Labs Labs: Lab
[2022-03-07 15:00] VITALS: BP 152/88; PULSE 79; RESP 14; TEMP 35.5; O2SAT 99
[2022-03-07] MEDS: lamoTRIgine 50 MG TABLET PO (17:06)
[2022-03-07 20:00] VITALS: PULSE 79; RESP 14; O2SAT 99
[2022-03-07] MEDS: NORTRIPTYLINE HCL 25 MG CAPSULE 50 MG PO (21:21)
[2022-03-07] MEDS: traZODone HCL 50 MG TABLET PO (21:21)
[2022-03-07 21:50] VITALS: BP 147/86; PULSE 93; RESP 18; TEMP 36.9; O2SAT 100
[2022-03-08 06:00] VITALS: BP 114/57; PULSE 88; RESP 16; TEMP 36.9; O2SAT 100
[2022-03-08] MEDS: LEVOTHYROXINE SODIUM 50 MCG TABLET PO (06:13)
[2022-03-08] MEDS: lamoTRIgine 50 MG TABLET PO (06:13)
[2022-03-08 08:22] LABS: Basophils Percent Auto 0.4 % (0.2-1.2); Eosinophils Absolute Auto 0.2 K/mm3 (0-0.3); Eosinophils Percent Auto 3.4 % (0-4.4); Hematocrit 34.4 % (37.0-47.0); Hemoglobin 11.6 g/dL (12.0-15.0); Immature Granulocyte Absolute 0.01 K/mm3 (0.00-0.031); Immature Granulocyte Percent A 0.2 % (0-0.5); Lymphocytes Absolute Auto 1.57 K/mm3 (0.9-3.2); Lymphocytes Percent Auto 31.6 % (18.3-44.2); Mean Corpuscular HGB Conc 33.7 g/dl (32-36); Mean Corpuscular Hemoglobin 33.7 pg (26-34); Mean Platelet Volume 9.5 fl (7.4-10.4); Monocytes Absolute Auto 0.5 K/mm3 (0.1-0.6); Monocytes Percent Auto 9.9 % (2.6-8.5); Neutrophils Absolute Auto 2.7 K/mm3 (1.3-6.7); Neutrophils Percent Auto 54.5 % (45.5-73.1); Platelet Count Result 229 k/mm3 (150-375); Red Blood Count 3.44 M/mm3 (4.2-5.4); Red Cell Distribution Width 11.7 % (11.5-14.5)
[2022-03-08 08:28] LABS: Anion Gap 7 mmol/L (8-16); Blood Urea Nitrogen 20 mg/dL (7-17); Calcium 9.4 mg/dL (8.4-10.2); Carbon Dioxide 26 mmol/L (22-30); Chloride 99 mmol/L (98-107); Estimated CRCL calculation 36 ml/min; Estimated Glomerular Filt Rate 44; Glucose 102 mg/dL (65-110); Potassium 4.6 mmol/L (3.4-5.0); Sodium 132 mmol/L (137-145)
--- NOTE | 2022-03-08 19:32 | PM.DS ---
DS: Admitting Diagnosis Discharge Date 03/08/22 Admitting Diagnosis Lower extremity swelling DS: Discharge Diagnosis Discharge Diagnosis (1) Hyponatremia: Code(s): E87.1 - Hypo-osmolality and hyponatremia Status: Acute Assessment and Plan: Up to 135 today, will discontinue fluid restriction, anticipate discharge tomorrow sodium remains stable (2) Major depressive disorder, recurrent, unspecified: Qualifiers: Active/Remission status: remission status unspecified Qualified Code(s): F33.9 - Major depressive disorder, recurrent, unspecified Code(s): F33.9 - Major depressive disorder, recurrent, unspecified Status: Chronic Assessment and Plan: Will restart home meds and reassess tomorrow, concern with how quickly patient's sodium resolved after being off medications that perhaps her medications are contributing to her hyponatremia, will need to monitor BMP outpatient and consider switching her decreasing her medications (3) Iron deficiency anemia, unspecified: Code(s): D50.9 - Iron deficiency anemia, unspecified Status: Chronic Assessment and Plan: Stable (4) Hypothyroidism, unspecified: Qualifiers: Hypothyroidism type: unspecified Qualified Code(s): E03.9 - Hypothyroidism, unspecified Code(s): E03.9 - Hypothyroidism, unspecified Status: Chronic Assessment and Plan: TSH within normal limits, continue home levothyroxine (5) Chronic kidney disease, stage 3 (moderate): Qualifiers: Chronic kidney disease stage 3 subtype: unspecified whether 3a or 3b Qualified Code(s): N18.30 - Chronic kidney disease, stage 3 unspecified Code(s): N18.3 - Chronic kidney disease, stage 3 (moderate) Status: Chronic Assessment and Plan: Creatinine down to 1 today (6) Obesity (BMI 30.0-34.9): Code(s): E66.9 - Obesity, unspecified Status: Acute Plan DVT prophylaxis with SCDs GI prophylaxis not indicated Code status full code DS: Summary Hospital Course Hospital Course: 76-year-old female with past medical history of depression and anxiety on Lamictal and nortriptyline presenting to the ER with lower extremity swelling. Patient states she has been drinking significantly more water than usual and did not feel well. When she called her PCP they recommended she come to the ER. No chest pain or shortness of breath. No nausea, vomiting or diarrhea. No fevers or chills. She was noted to have a sodium of 122. Patient states she has a history of hyponatremia and was told that she drinks too much water sometimes. She states this also happens to her sister. They put her sister on a fluid restriction, and all symptoms resolved. She was placed on a fluid restriction, her symptoms resolved significantly. Her home medications were restarted and she was observed. Her sodium started to drop again, so her nortriptyline was discontinued. She was discharged in good condition with close outpatient follow-up and her nortriptyline was discontinued. Time Spent with Patient Time attestation: Total time spent providing and/or coordinating discharge services: Exam Narrative: General: No acute distress, alert and oriented per baseline HEENT: Atraumatic, normocephalic, mucous membranes moist CV: Regular rate and rhythm, S1, S2 Lungs: Clear to auscultation bilaterally, no rales or crackles noted, no wheezes, good air entry Abdomen: Soft, nontender, nondistended Extremities: Normal to inspection, mild lymphedema noted bilateral lower extremities Skin: No rashes noted, no lesions or wounds seen Psych: Euthymic, normal affect DS: Data Data Completed and Pending Labs on day of discharge: Labs from last 24 hours 03/08/22 03/08/22 03/05/22 08:09 08:09 20:42 WBC 5.0 RBC 3.44 L Hgb 11.6 L Hct 34.4 L MCV 100.0 MCH 33.7 MCHC 33.7 RDW 11.7 Plt Count 229 MPV 9.5 Immature Gran % (
== END 2022-03-08 10:40 | disposition home or self-care (01) ==
LOC: ANHED 22:24 → ANH3MED 23:17
PROVIDERS: Nurse Practitioner; Physician Assistant; Admitting Provider Internal Medicine; Emergency Provider Emergency Medicine; PCP Family Medicine; Visit Provider Student in an Organized Health Care Education/Training Program
DX: E87.1 Hypo-osmolality and hyponatremia (principal); F33.9 Major depressive disorder, recurrent, unspecified; D50.9 Iron deficiency anemia, unspecified; E03.9 Hypothyroidism, unspecified; I13.10 Hypertensive heart and chronic kidney disease without heart failure, with stage 1 through stage 4 chronic kidney disease, or unspecified chronic kidney disease; I50.30 Unspecified diastolic (congestive) heart failure; N18.30 Chronic kidney disease, stage 3 unspecified; E66.9 Obesity, unspecified; Z68.32 Body mass index [BMI] 32.0-32.9, adult; R06.00 Dyspnea, unspecified; J84.9 Interstitial pulmonary disease, unspecified; I35.8 Other nonrheumatic aortic valve disorders; F41.9 Anxiety disorder, unspecified; E78.2 Mixed hyperlipidemia; Z79.891 Long term (current) use of opiate analgesic; Z79.899 Other long term (current) drug therapy; Z82.49 Family history of ischemic heart disease and other diseases of the circulatory system; Z84.1 Family history of disorders of kidney and ureter
CPT/HCPCS: 36415; 71046; 80048; 80053; 81001; 82728; 83605; 83615; 83690; 83735; 83880; 83930; 84100; 84133; 84300; 84443; 85025; 86140; 93005; 93306; 93970; 99285; A9270; G0378

== ENCOUNTER 2022-03-22 11:25 | Outpatient (CLI) | payer MEDICARE, SELFPAY ==
[2022-03-22 20:17] LABS: Alanine Aminotransferase 28 U/L (6-35); Albumin Level 4.6 g/dL (3.5-5.1); Alkaline Phosphatase 88 U/L (38-126); Anion Gap 12 mmol/L (8-16); Aspartate Amino Transferase 85 U/L (14-36); Bilirubin,Total 0.5 mg/dL (0.2-1.3); Blood Urea Nitrogen 17 mg/dL (7-17); Calcium 9.5 mg/dL (8.4-10.2); Carbon Dioxide 28 mmol/L (22-30); Chloride 91 mmol/L (98-107); Estimated Glomerular Filt Rate 54; Glucose 92 mg/dL (65-110); Potassium 4.4 mmol/L (3.4-5.0); Sodium 131 mmol/L (137-145)
[2022-03-22 21:05] LABS: Appearance Urine Clear (Clear); Bilirubin Urine Negative (Negative); Blood Urine Negative (Negative); Color Urine Yellow (Yellow); Glucose Urine UA Negative (Negative); Ketones Urine Negative (Negative); Leukocyte Esterase Ur Negative LEU/UL (Negative); Nitrate Urine Negative (Negative); Protein Urine Negative (Negative); Specific Grav Ur 1.015 (1.001-1.035); Urobilinogen Urine 0.2 mg/dL (<2.0)
[2022-03-22 21:07] LABS: Add Urine Microscopic? NO
== END 2022-03-22 11:26 | disposition home or self-care (01) ==
PROVIDERS: PCP Family Medicine; Visit Provider Nurse Practitioner
DX: E87.1 Hypo-osmolality and hyponatremia (principal); R30.0 Dysuria
CPT/HCPCS: 36415; 80053; 81003

== ENCOUNTER 2022-04-05 11:55 | Outpatient (CLI) | payer MEDICARE, SELFPAY ==
[2022-04-05 20:25] LABS: Alanine Aminotransferase 29 U/L (6-35); Albumin Level 4.2 g/dL (3.5-5.1); Alkaline Phosphatase 77 U/L (38-126); Anion Gap 11 mmol/L (8-16); Aspartate Amino Transferase 38 U/L (14-36); Bilirubin,Total 0.2 mg/dL (0.2-1.3); Blood Urea Nitrogen 31 mg/dL (7-17); Calcium 9.5 mg/dL (8.4-10.2); Carbon Dioxide 25 mmol/L (22-30); Chloride 94 mmol/L (98-107); Estimated Glomerular Filt Rate 44; Glucose 98 mg/dL (65-110); Potassium 4.6 mmol/L (3.4-5.0); Sodium 130 mmol/L (137-145)
== END 2022-04-05 11:56 | disposition home or self-care (01) ==
LOC: ANHGOSHLAB 11:57
PROVIDERS: PCP Family Medicine; Visit Provider Nurse Practitioner
DX: E87.1 Hypo-osmolality and hyponatremia (principal)
CPT/HCPCS: 36415; 80053

== ENCOUNTER 2022-04-29 15:54 | Outpatient (CLI) | payer MEDICARE, SELFPAY ==
[2022-04-29 19:51] LABS: Anion Gap 10 mmol/L (8-16); Blood Urea Nitrogen 30 mg/dL (7-17); Calcium 9.8 mg/dL (8.4-10.2); Carbon Dioxide 27 mmol/L (22-30); Chloride 101 mmol/L (98-107); Estimated Glomerular Filt Rate 37; Glucose 92 mg/dL (65-110); Potassium 4.2 mmol/L (3.4-5.0); Sodium 138 mmol/L (137-145)
== END 2022-04-29 15:55 | disposition home or self-care (01) ==
LOC: ANHGOSHLAB 16:02
PROVIDERS: PCP Family Medicine; Visit Provider Nurse Practitioner
DX: E87.1 Hypo-osmolality and hyponatremia (principal)
CPT/HCPCS: 36415; 80048

== ENCOUNTER 2022-05-25 10:25 | Outpatient (CLI) | payer MEDICARE, SELFPAY ==
[2022-05-25 19:02] LABS: Alanine Aminotransferase 35 U/L (6-35); Albumin Level 4.3 g/dL (3.5-5.1); Alkaline Phosphatase 85 U/L (38-126); Anion Gap 8 mmol/L (8-16); Aspartate Amino Transferase 43 U/L (14-36); Bilirubin,Total 0.4 mg/dL (0.2-1.3); Blood Urea Nitrogen 22 mg/dL (7-17); Calcium 9.4 mg/dL (8.4-10.2); Carbon Dioxide 31 mmol/L (22-30); Chloride 91 mmol/L (98-107); Cholesterol 242 mg/dL (0-200); Estimated Glomerular Filt Rate 49; Glucose 101 mg/dL (65-110); HDL Direct 56 mg/dL; Potassium 4.4 mmol/L (3.4-5.0); Sodium 130 mmol/L (137-145); Triglycerides 125 mg/dL (<150)
[2022-05-25 19:03] LABS: Hematocrit 38.2 % (37.0-47.0); Hemoglobin 12.9 g/dL (12.0-15.0); Mean Corpuscular HGB Conc 33.8 g/dl (32-36); Mean Corpuscular Hemoglobin 33.2 pg (26-34); Mean Corpuscular Volume 98.2 fl (80-100); Mean Platelet Volume 10.2 fl (7.4-10.4); Platelet Count Result 248 k/mm3 (150-375); Red Blood Count 3.89 M/mm3 (4.2-5.4); White Blood Count 4.6 K/mm3 (4.5-10.0)
[2022-05-25 19:12] LABS: LDL Cholesterol Direct 124 mg/dL
[2022-05-25 19:26] LABS: Free T4 Free Thyroxine 1.26 ng/mL (0.78-2.19)
== END 2022-05-25 10:26 | disposition home or self-care (01) ==
LOC: ANHGOSHLAB 10:27
PROVIDERS: PCP Family Medicine; Visit Provider Family Medicine
DX: D64.9 Anemia, unspecified (principal); E78.2 Mixed hyperlipidemia; E03.9 Hypothyroidism, unspecified; N18.30 Chronic kidney disease, stage 3 unspecified
CPT/HCPCS: 36415; 80053; 80061; 84439; 84443; 85027

== ENCOUNTER 2022-12-16 13:27 | Outpatient (CLI) | payer MEDICARE, SELFPAY ==
[2022-12-16 19:47] LABS: Hematocrit 40.9 % (37.0-47.0); Hemoglobin 13.7 g/dL (12.0-15.0); Mean Corpuscular HGB Conc 33.5 g/dl (32-36); Mean Corpuscular Hemoglobin 34.2 pg (26-34); Mean Platelet Volume 10.8 fl (7.4-10.4); Platelet Count Result 204 k/mm3 (150-375); Red Blood Count 4.01 M/mm3 (4.2-5.4); Red Cell Distribution Width 11.5 % (11.5-14.5); White Blood Count 4.1 K/mm3 (4.5-10.0)
[2022-12-16 20:36] LABS: Alanine Aminotransferase 20 U/L (6-35); Albumin Level 4.4 g/dL (3.5-5.1); Alkaline Phosphatase 91 U/L (38-126); Anion Gap 4 mmol/L (8-16); Aspartate Amino Transferase 43 U/L (14-36); Bilirubin,Total 0.7 mg/dL (0.2-1.3); Blood Urea Nitrogen 21 mg/dL (7-17); Calcium 9.7 mg/dL (8.4-10.2); Carbon Dioxide 33 mmol/L (22-30); Chloride 99 mmol/L (98-107); Cholesterol 200 mg/dL (0-200); Estimated Glomerular Filt Rate 48; Glucose 93 mg/dL (65-110); HDL Direct 40 mg/dL; Potassium 4.2 mmol/L (3.4-5.0); Sodium 136 mmol/L (137-145); Triglycerides 127 mg/dL (<150)
[2022-12-16 20:42] LABS: Free T4 Free Thyroxine 1.52 ng/mL (0.78-2.19); Vitamin D 25 Hydroxy 59.5 ng/mL
[2022-12-16 20:48] LABS: LDL Cholesterol Direct 103 mg/dL
== END 2022-12-16 13:28 | disposition home or self-care (01) ==
LOC: ANHGOSHLAB 13:30
PROVIDERS: PCP Family Medicine; Visit Provider Nurse Practitioner
DX: D64.9 Anemia, unspecified (principal); E03.9 Hypothyroidism, unspecified; E78.2 Mixed hyperlipidemia; N18.30 Chronic kidney disease, stage 3 unspecified; E55.9 Vitamin D deficiency, unspecified
CPT/HCPCS: 36415; 80053; 80061; 82306; 84439; 84443; 85027

== ENCOUNTER → 2023-03-09 14:49 | Outpatient (CLI) | payer MEDICARE, SELFPAY ==
--- NOTE | ~2023-03-09 | US_ITS ---
EXAMINATION: US soft tissue lower back DATE: 03/09/2023 15:02 INDICATION: Localized swelling, mass or lump at the left paraspinal lower back TECHNIQUE: Multiple grayscale and Doppler ultrasound images of the region of concern at the posterior left lumbar region were obtained. COMPARISON: None FINDINGS: 4.3 x 3.6 x 2.4 cm complex fluid collection in the subcutaneous tissues at the region of concern with relatively smooth and thin peripheral capsule,, a thin nearly indiscernible internal septation and a peripheral hypoechoic region contiguous with a second thicker hypoechoic internal septation. No evid ent internal vascular flow or surrounding hyperemia. IMPRESSION: 1. Nonspecific 4.3 x 2.6 x 2.4 cm complex cystic lesion at the region of concern. No evident internal vascularity within the hypoechoic component to suggest neoplasm or surrounding hyperemia to suggest abscess. Appearance most suggestive of a hematoma/seroma. Reviewed, dictated and finalized at location A. IMPRESSION: 1. Nonspecific 4.3 x 2.6 x 2.4 cm complex cystic lesion at the region of concer n. No evident internal vascularity within the hypoechoic component to suggest n eoplasm or surrounding hyperemia to suggest abscess. Appearance most suggestive of a hematoma/seroma.
== END ==
PROVIDERS: PCP Nurse Practitioner; Visit Provider Nurse Practitioner
DX: R22.9 Localized swelling, mass and lump, unspecified (principal)
CPT/HCPCS: 76705

== ENCOUNTER 2023-04-19 18:06 | Emergency (ER) | payer MEDICARE, SELFPAY ==
--- NOTE | ~2023-04-19 | XR_ITS ---
XR chest 1V portable 04/19/2023 19:04 Indication: Weakness. Procedure: AP portable chest Comparison: Comparison to multiple prior studies sequentially, with oldest reviewed study dated 10/2016. 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 There are surgical clips in the left axilla. Heart size normal. No focal air space disease, pulmonary edema, pleural effusion or suspected pneumothorax. There is a left breast implant, peripherally calcified. There are cholecys tectomy clips. Impression: 1: No acute cardiopulmonary disease. Reviewed, dictated and finalized at location A. Impression: 1: No acute cardiopulmonary disease.
[2023-04-19 18:10] VITALS: BP 125/64; PULSE 112; RESP 20; TEMP 36.3; O2SAT 100
--- NOTE | 2023-04-19 18:38 | ECG_ITS ---
Measurements Intervals [place] Rate: 101 P: 62 VT: 183 QRS: 21 QRSD: 102 T: -3 QT: 342 QTc: 443 Interpretive Statements SINUS TACHYCARDIA MINIMAL Q WAVES- INFERIOR LEADS NONSPECIFIC T-WAVE ABNORMALITY- ANT/INF LEADS BASELINE ARTIFACT- I, III, AVR, AVL, AVF, V4-V6 BORDERLINE ECG COMPARED TO ECG 03/05/2022 20:04:13 SINUS TACHYCARDIA NOW PRESENT T-WAVE ABNORMALITY NOW PRESENT Electronically Signed On 04-20-2023 7:56:20 CDT by Sukumar Lewis D.O.
[2023-04-19 18:48] VITALS: BP 116/80; PULSE 104; RESP 17; O2SAT 100
[2023-04-19 18:56] LABS: Basophils Percent Auto 0.4 % (0.2-1.2); Hematocrit 40.4 % (37.0-47.0); Hemoglobin 14.1 g/dL (12.0-15.0); Immature Granulocyte Absolute 0.02 K/mm3 (0.00-0.031); Immature Granulocyte Percent A 0.4 % (0-0.5); Lymphocytes Absolute Auto 0.95 K/mm3 (0.9-3.2); Lymphocytes Percent Auto 17.1 % (18.3-44.2); Mean Corpuscular HGB Conc 34.9 g/dl (32-36); Mean Corpuscular Volume 97.3 fl (80-100); Mean Platelet Volume 10.9 fl (7.4-10.4); Monocytes Absolute Auto 0.5 K/mm3 (0.1-0.6); Monocytes Percent Auto 9.2 % (2.6-8.5); Neutrophils Absolute Auto 4.1 K/mm3 (1.3-6.7); Neutrophils Percent Auto 72.9 % (45.5-73.1); Platelet Count Result 213 k/mm3 (150-375); Red Blood Count 4.15 M/mm3 (4.2-5.4); Red Cell Distribution Width 11.8 % (11.5-14.5); White Blood Count 5.6 K/mm3 (4.5-10.0)
[2023-04-19 18:59] LABS: Appearance Urine Clear (Clear); Bacteria Urine None Seen /hpf; Bilirubin Urine Negative (Negative); Blood Urine Negative (Negative); Color Urine Yellow (Yellow); Glucose Urine UA Negative (Negative); Ketones Urine Trace mg/dL (Negative); Leukocyte Esterase Ur 2+ LEU/UL (Negative); Nitrate Urine Negative (Negative); Non Pathogenic Casts 0-2; Protein Urine Negative (Negative); Specific Grav Ur 1.017 (1.001-1.035); Squamous Epithelial Cell Urine None seen /hpf (Few)
[2023-04-19 19:02] VITALS: PULSE 100
[2023-04-19 19:02] LABS: Add Urine Microscopic? YES
[2023-04-19 19:15] LABS: Alanine Aminotransferase 34 U/L (6-35); Albumin Level 4.3 g/dL (3.5-5.1); Alkaline Phosphatase 102 U/L (38-126); Anion Gap 11 mmol/L (8-16); Aspartate Amino Transferase 39 U/L (14-36); Bilirubin,Total 0.8 mg/dL (0.2-1.3); Blood Urea Nitrogen 23 mg/dL (7-17); Calcium 9.8 mg/dL (8.4-10.2); Carbon Dioxide 21 mmol/L (22-30); Chloride 98 mmol/L (98-107); Estimated CRCL calculation 43 ml/min; Estimated Glomerular Filt Rate > 60; Glucose 102 mg/dL (65-110); Potassium 3.6 mmol/L (3.4-5.0); Sodium 130 mmol/L (137-145)
--- NOTE | 2023-04-19 19:27 | PC.NURSE ---
Assumed care of pt. Report from JOHANNA Angel. Pt resting quietly per cart. Awaiting ERP eval.
[2023-04-19 19:34] VITALS: PULSE 101
--- NOTE | 2023-04-19 20:08 | ED.GENADULT ---
HPI - General Adult General Chief complaint: Weakness Stated complaint: fatigue, decreased appetite Time Seen by Provider: 04/19/23 20:08 Source: patient Mode of arrival: ambulatory Limitations: no limitations History of Present Illness HPI narrative: 77 years old white female came to the emergency room because have hard time to sleep. Today makes was night. She does not eat enough or drink enough feels dehydrated and weak. She denies any fever, chills, nausea, vomiting. Reports a lot of stress. Lives alone. She denies suicidal or homicidal ideation Related Data Home Medications Medication Instructions Recorded Confirmed lamotrigine 50 mg PO BID 08/14/20 03/01/23 trazodone 50 mg tablet 50 mg PO HS 03/06/22 03/01/23 valbenazine 40 mg capsule 40 mg PO DAILY 03/22/22 03/01/23 (Ingrezza) Allergies Allergy/AdvReac Type Severity Reaction Status Date / Time ciprofloxacin Allergy Unknown Nausea Verified 03/01/23 11:38 doxycycline Allergy Unknown Nausea Verified 03/01/23 11:38 lithium Allergy Unknown Unknown Verified 03/01/23 11:38 Sulfa (Sulfonamide Allergy Unknown Nausea Verified 03/01/23 11:38 Antibiotics) Review of Systems Review of Systems: All systems reviewed & are unremarkable except as noted in HPI and below PMFSH Past Medical History Medical History Actinic keratosis Chronic kidney disease, stage 3 (moderate) Closed sacral fracture History of subarachnoid hemorrhage Hypothyroidism, unspecified Iron deficiency anemia, unspecified Major depressive disorder, recurrent, unspecified Mixed hyperlipidemia Sacral fracture Surgical History Surgical History H/O mastectomy left breast History of augmentation of left breast History of tonsillectomy Hx of cholecystectomy Family History Family History Grandparent Diabetes mellitus Father Family history of elevated blood lipids Family history of cardiovascular disease Family history of coronary artery disease Family history of renal cell carcinoma Sibling Family history of lung cancer Social History Social History Social History: The patient is and has 3 daughters and one son. Her son is . Her sister Janice clements is her power district attorney for healthcare. The patient is a lifelong nonsmoker. She does not use any alcohol marijuana or illicit drugs. Code status full code Smoking status: Never smoker Alcohol intake: never Substance use: never Lack of Transportation: No Lack of Food: Never True Current Housing: I Have Housing Concerned About Future Housing: No Difficulty Paying Gas/Electric Bills: No Difficulty Paying for Meds: No Currently Unemployed: No Education: Trade/Vocational Certificate Difficulty w/ Childcare or Family Care: No Living arrangements: alone Occupation/Education: retired Gender identity (if verbalized by the patient): Female Spiritual care concerns: No Exam Narrative: General appearance: Well-developed, well-nourished, looks depressed, not in pain Skin: Normal color Head: Normocephalic, nontraumatic Eyes: Clear conjunctiva ENT: Oropharynx normal, ears normal, nose normal Neck: Supple, nontender Chest and respiratory: Airway patent, no respiratory distress, no accessory muscle use Heart: Regular rate/rhythm Abdomen: Soft, nontender, no organomegaly, quiet bowel sounds Vascular: Normal peripheral pulses, normal capillary refill. Musculoskeletal: Normal range of motion, nontender back Neurologic: Alert and oriented ?3, PEDIATRIC ASSOCIATE is normal as tested, no gross motor deficit
[2023-04-19] MEDS: SODIUM CHLORIDE 0.9% IV 1,000 ML 999 ML IV CONT (20:40)
[2023-04-19 21:00] VITALS: BP 118/103; PULSE 96; RESP 16; O2SAT 100
[2023-04-19] MEDS: NITROFURANTOIN MONOHYD MACROCR 100 MG CAP PO (21:26)
== END 2023-04-19 21:45 | disposition home or self-care (01) ==
PROVIDERS: Emergency Provider Emergency Medicine; PCP Nurse Practitioner
DX: F32.A Depression, unspecified (principal); N39.0 Urinary tract infection, site not specified; G47.00 Insomnia, unspecified; N18.30 Chronic kidney disease, stage 3 unspecified; E03.9 Hypothyroidism, unspecified; E78.2 Mixed hyperlipidemia
CPT/HCPCS: 36415; 71045; 80053; 81001; 85025; 87086; 93005; 96360; 99284; A9270; J7030

== ENCOUNTER 2023-05-02 15:48 | Outpatient (CLI) | payer MEDICARE, SELFPAY | END 2023-05-02 15:49 | disposition home or self-care (01) | LOC: ANHGOSHLAB 15:49 | PROVIDERS: PCP Nurse Practitioner; Visit Provider Nurse Practitioner | DX: R30.0 Dysuria (principal); R53.81 Other malaise | CPT/HCPCS: 87086; 87088 ==

== ENCOUNTER 2023-06-09 20:21 | Outpatient (NON) | payer MEDICARE, SELFPAY ==
[2023-06-09 21:21] LABS: Appearance Urine Turbid (Clear); Bacteria Urine 3+ /hpf; Bilirubin Urine Negative (Negative); Blood Urine 1+ (Negative); Color Urine Yellow (Yellow); Glucose Urine UA Negative (Negative); Ketones Urine Negative (Negative); Leukocyte Esterase Ur 3+ LEU/UL (Negative); Nitrate Urine Positive (Negative); Protein Urine 1+ mg/dL (Negative); RBC Urine 0-2 /hpf (0-2); Specific Grav Ur 1.011 (1.001-1.035); Squamous Epithelial Cell Urine None seen /hpf (Few); Urobilinogen Urine 0.2 mg/dL (<2.0); WBC Urine >100 /hpf
[2023-06-09 21:25] LABS: Add Urine Microscopic? YES
== END 2023-06-09 20:22 | disposition home or self-care (01) ==
LOC: ANHLAB 20:22
PROVIDERS: PCP Nurse Practitioner; Visit Provider Nurse Practitioner
DX: R30.0 Dysuria (principal)
CPT/HCPCS: 81001; 87077; 87086; 87186